=== PATIENT | female | born 1950 | race Two or more races ===

== ENCOUNTER 2019-07-02 12:18 | Inpatient (IN) | payer MEDICARE, OTHER ==
[~2019-07-02] VITALS: Ht 170.2 cm; Wt 59.4 kg
[2019-07-02] MEDS ORDERED: ACETAMINOPHEN 325 MG TABLET ONE ×2 (12:55→17:34)
[2019-07-02] MEDS ORDERED: ONDANSETRON HCL/PF 4 MG/2 ML VIAL ONE (12:55)
[2019-07-02 12:56] LABS: BASOPHILS % (AUTO) 0.5 % (0.0-2.0); EOSINOPHILS % (AUTO) 2.9 % (0.0-6.0); HEMATOCRIT 29 % (33-45); HEMOGLOBIN 9.5 g/dL (11.5-14.8); LYMPHOCYTES # (AUTO) 0.7 /CMM (0.8-4.8); LYMPHOCYTES % (AUTO) 9.2 % (20.0-44.0); MEAN CORPUSCULAR HGB CONC 33 g/dl (31.0-36.0); MEAN CORPUSCULAR VOLUME 93 fL (82-100); MONOCYTES # (AUTO) 0.5 /CMM (0.1-1.30); MONOCYTES % (AUTO) 5.9 % (2.0-12.0); NEUTROPHILS # (AUTO) 6.3 /CMM (1.8-8.9); NEUTROPHILS % (AUTO) 81.5 % (43.0-81.0); PLATELET COUNT (AUTO) 455 /CMM (150-450); RED BLOOD CELL COUNT(AUTO) 3.12 MIL/uL (4.0-5.2); WHITE BLOOD COUNT (AUTO) 7.8 K/uL (4.3-11.0)
[2019-07-02] MEDS ORDERED: IV NS 0.9% 500 ML BAG IV ONE (13:00)
[2019-07-02] MEDS ORDERED: ONDANSETRON HCL/PF 4 MG/2 ML VIAL IVP ONE (13:00)
[2019-07-02] MEDS ORDERED: ACETAMINOPHEN 325 MG TABLET PO ONE ×2 (13:00→17:30)
--- NOTE | 2019-07-02 13:00 | NUR ---
patient BIBRA, c/o nausea s/p syncopal episode from home, on room air, breathing evenly and unlabored. connected to the monitor and pulse ox. kept comfortable, will continue to monitor accordingly. E
[2019-07-02 13:06] LABS: CALCIUM, SERUM 8.8 mg/dL (8.5-10.1); CARBON DIOXIDE 28 mmol/L (21-32); CHLORIDE 101 mmol/L (98-107); CREATININE 1.1 mg/dL (0.6-1.3); GLUCOSE 109 mg/dL (74-106); POTASSIUM 4.4 mmol/L (3.5-5.1); SODIUM SERUM 137 mmol/L (136-145); UREA NITROGEN, BLOOD 11 mg/dL (7-18)
[2019-07-02 13:13] LABS: ALANINE AMINOTRANSFERASE 16 U/L (12-78); ALBUMIN 2.7 g/dL (3.4-5.0); ALKALINE PHOSPHATASE 152 U/L (46-116); ASPARTATE AMINOTRANSFERASE 31 U/L (15-37); BILIRUBIN,DIRECT 0.1 mg/dL (0.0-0.2); BILIRUBIN,TOTAL 0.5 mg/dL (0.2-1.0); TOTAL PROTEIN, SERUM 6.2 g/dL (6.4-8.2)
[2019-07-02 14:26] LABS: APPEARANCE,URINE Clear (CLEAR); BILIRUBIN,URINE Negative (NEGATIVE); BLOOD, URINE Negative Ery/uL (NEGATIVE); COLOR,URINE Yellow (YELLOW); KETONES,URINE Negative (NEGATIVE); LEUKOCYTE ESTERASE ,URINE Small (NEGATIVE); NITRITE, URINE Negative (NEGATIVE); PROTEIN,URINE Negative (NEGATIVE); UGLUCOSE Negative (NEGATIVE); UROBILINOGEN,URINE 0.2 EU/dL (0.2)
[2019-07-02 14:33] LABS: BACTERIA,URINE Few /HPF (None Seen); RBC,URINE 0-2 /HPF (0-2); SQUAMOUS EPITHELIAL CELL,UR Few /HPF (None Seen)
--- NOTE | 2019-07-02 14:45 | NUR ---
ALL RESULTS BACK, BENSON LISA INFORMED THAT CAREGIVER AT BEDSIDE WANTS AN UPDATE
[2019-07-02] MEDS ORDERED: ATOR40TA PO (15:47)
[2019-07-02] MEDS ORDERED: OMEP20TA5 PO (15:47)
[2019-07-02] MEDS ORDERED: LAMO100T17 PO (15:47)
[2019-07-02] MEDS ORDERED: LATA2.5D7 OP (15:47)
[2019-07-02] MEDS ORDERED: BRIM5DRO3 EACHEYE (15:47)
[2019-07-02] MEDS ORDERED: ASPI-605 PO (15:47)
[2019-07-02] MEDS ORDERED: CARB-93 PO (15:47)
[2019-07-02] MEDS ORDERED: GABA-534 PO (15:47)
[2019-07-02] MEDS ORDERED: MULT-439 PO (15:47)
[2019-07-02] MEDS ORDERED: LOSA25TA27 PO (15:47)
[2019-07-02] MEDS ORDERED: CRAN400T3 PO (15:47)
[2019-07-02] MEDS ORDERED: DULO60CA45 PO (15:47)
[2019-07-02] MEDS ORDERED: [UNRECOGNIZED DRUG - CODE] PO (15:47)
[2019-07-02] MEDS ORDERED: MELA3TAB41 PO (15:47)
[2019-07-02] MEDS ORDERED: IBAN150T16 PO (15:47)
[2019-07-02] MEDS ORDERED: CHOL200076 PO (15:47)
--- NOTE | 2019-07-02 15:50 | NUR ---
wheeled patient ia lexii to ct
[2019-07-02] MEDS ORDERED: CEFTRIAXONE 1GM BAG (ER ONLY) 1 GM/50 ML PIGGYBACK IV ONE (16:00)
[2019-07-02] MEDS ORDERED: CEFTRIAXONE 1GM BAG (ER ONLY) 50 ML IV ONE (16:12)
--- NOTE | 2019-07-02 16:34 | NUR ---
CALLED [facility], PAGED CARRILLO MATHEW
--- NOTE | 2019-07-02 16:41 | NUR ---
jass [facility] authorization number to admit [id number]
--- NOTE | 2019-07-02 16:43 | NUR ---
rasta gave auth to admit patient. Addendum: 07/02/19 at 1650 by MICHELE toby gave auth to admit patient
--- NOTE | 2019-07-02 18:41 | NUR ---
report given to Marlys MENG for bria.
--- NOTE | 2019-07-02 19:03 | NUR ---
wheeled patient via gurney accompanied by RN and emt in no distress. Vega RN at bedside to assume care.
--- NOTE | 2019-07-02 19:18 | NUR ---
RN NOTES Received Patient via gurney. Ambulatory with assist and walker. A/O x 3 with episodes of forgetfulness. Patient in stable condition. Breathing even and unlabored on room air with no respiratory distress. Denies pain. No signs and symptoms of pain. 18g PIV on LAC clean, intact, patent and flushing well. Safety precautions in place. Bed locked and set to lowest position with side rails x 2 up. All needs rendered at this time. Call light within reach. Will endorse to complete admission and plan of care to oncoming shift.
--- NOTE | 2019-07-02 19:30 | NUR ---
TELE ADMISSION NOTES RECEIVED PATIENT AWAKE IN BED. FAMILY PRESENT AT THE BEDSIDE. A/OX3. ON ROOM AIR. NO S/S OF ACUTE RESPIRATORY DISTRESS AND NO COMPLAINTS OF PAIN AT THIS TIME. TELE MONITOR READING SINUS RHYTHM, HEART RATE 92. IV PRESENT ON LEFT AC, SIZE 20, INTACT & PATENT, HEP LOCKED. BELONGINGS LIST PLACED IN CHART. MED RECONCILIATION COMPLETED. SAFETY MEASURES IN PLACE. BED LOCKED, ALARM ON, SIDE RAILS X2, CALL LIGHT WITHIN REACH. WILL CONTINUE TO MONITOR.
[2019-07-02] MEDS ORDERED: IV NS 0.9% 1,000 ML IV PRN (19:43)
[2019-07-02 20:00] VITALS: BP 121/79
[2019-07-02] MEDS ORDERED: ACETAMINOPHEN 325 MG TABLET PO PRN (20:00)
[2019-07-02] MEDS ORDERED: ONDANSETRON HCL/PF 4 MG/2 ML VIAL IVP PRN (20:00)
[2019-07-02] MEDS ORDERED: Z GUARD REMEDY 2 OZ OINT TP PRN (20:00)
[2019-07-02 20:54] VITALS: BP 121/79
[2019-07-02] MEDS: CARBIDOPA/LEVODOPA 25/100 MG 1 UDTAB PO SCH (21:59)
[2019-07-02] MEDS: CEPHALEXIN MONOHYDRATE 250 MG CAPSULE PO SCH (21:59)
[2019-07-02] MEDS: ENOXAPARIN SODIUM 40 MG/0.4 ML DISP.SYRIN SQ SCH (22:00)
[2019-07-02] MEDS: LIDOCAINE 5% (PATCH) 1 EA PATCH TP SCH (22:00)
[2019-07-02] MEDS: LATANOPROST EYE DROP 0.005% 2.5 ML BOTTLE OP SCH (22:00)
[2019-07-02] MEDS ORDERED: DULOXETINE HCL 30 MG CAPSULE.DR PO SCH (22:00)
[2019-07-03] VITALS (8 sets, daily range): BP systolic 134–150; BP diastolic 80–98
[2019-07-03] MEDS: CEPHALEXIN MONOHYDRATE 250 MG CAPSULE PO SCH ×3 (05:06→21:09)
[2019-07-03 06:38] LABS: BASOPHILS % (AUTO) 0.4 % (0.0-2.0); EOSINOPHILS % (AUTO) 3.6 % (0.0-6.0); HEMATOCRIT 28 % (33-45); HEMOGLOBIN 9.2 g/dL (11.5-14.8); LYMPHOCYTES % (AUTO) 13.4 % (20.0-44.0); MEAN CORPUSCULAR HGB CONC 33 g/dl (31.0-36.0); MEAN CORPUSCULAR VOLUME 92 fL (82-100); MONOCYTES # (AUTO) 0.6 /CMM (0.1-1.30); MONOCYTES % (AUTO) 7.9 % (2.0-12.0); NEUTROPHILS # (AUTO) 5.7 /CMM (1.8-8.9); NEUTROPHILS % (AUTO) 74.7 % (43.0-81.0); PLATELET COUNT (AUTO) 418 /CMM (150-450); RED BLOOD CELL COUNT(AUTO) 3.05 MIL/uL (4.0-5.2); WHITE BLOOD COUNT (AUTO) 7.6 K/uL (4.3-11.0)
--- NOTE | 2019-07-03 06:53 | NUR ---
GAS CONTROLLER CLOSING NOTES PATIENT AWAKE IN BED. A/OX3. ON ROOM AIR. NO COMPLAINTS OF SOB OR PAIN AT THIS TIME. TELE MONITOR READING SINUS RHYTHM, HEART RATE 89. IV ON LEFT AC, SIZE 20, INTACT & PATENT, NS RUNNING AT 75 ML/HR. BED LOCKED, ALARM ON, SIDE RAILS X2, CALL LIGHT WITHIN REACH. WILL ENDORSE TO DAY SHIFT NURSE TO FOLLOW PLAN OF CARE.
[2019-07-03 06:54] LABS: BILIRUBIN,TOTAL 0.3 mg/dL (0.2-1.0); CALCIUM, SERUM 8.2 mg/dL (8.5-10.1); CREATININE 0.9 mg/dL (0.6-1.3); PHOSPHORUS 3.6 mg/dL (2.5-4.9); POTASSIUM 3.6 mmol/L (3.5-5.1)
[2019-07-03 06:55] LABS: ALBUMIN 2.5 g/dL (3.4-5.0); MAGNESIUM 1.9 mg/dL (1.8-2.4); TOTAL PROTEIN, SERUM 5.7 g/dL (6.4-8.2)
[2019-07-03 07:06] LABS: THYROID STIMULATING HORMONE 1.351 uIU/mL (0.358-3.74)
--- NOTE | 2019-07-03 08:50 | NUR ---
Patient accidentally pulled out IV line
[2019-07-03] MEDS ORDERED: LOSARTAN POTASSIUM 25 MG TABLET PO SCH (09:00)
[2019-07-03] MEDS ORDERED: LamoTRIgine 100 MG TABLET PO SCH (09:00)
[2019-07-03] MEDS ORDERED: GABAPENTIN 300 MG CAPSULE PO SCH (09:00)
--- NOTE | 2019-07-03 09:10 | NUR ---
A new IV line to the right arm G 22, flushing well.
[2019-07-03] MEDS: ASPIRIN EC 81 MG TABLET.DR PO SCH (09:48)
[2019-07-03] MEDS: BRIMONIDINE TARTRATE OPHT SOLN 5 ML BOTTLE EACHEYE SCH ×2 (09:48→18:01)
[2019-07-03] MEDS: CARBIDOPA/LEVODOPA 25/100 MG 1 UDTAB PO SCH (09:49)
[2019-07-03] MEDS ORDERED: SOD FERRIC GLUC 125 MG in IV NS 0.9% 100 ML IV SCH (14:00)
--- NOTE | 2019-07-03 16:50 | NUR ---
Made aware Stacy. Ricki PRATT that patient's daughter wants to discus medications pt on
--- NOTE | 2019-07-03 17:00 | NUR ---
Dr. Reyes will call pt daughter later today
--- NOTE | 2019-07-03 18:42 | NUR ---
Patient resting in bed with caregiver at bedside.Breathing even and unlabored on room air , with no distress noted. IV fluid running as ordered. All needs attended. Pt will d/c in am. Safety precautions implemented and call light within reach. Will endorse to next shift for RAMIREZ
--- NOTE | 2019-07-03 19:51 | NUR ---
DENTAL BILLING SPECIALIST NOTES PATIENT IN BED, AWAKE, ALERT AND ORIENTED X 3. BREATHING EVEN AND UNLABORED ON ROOM AIR. SHOWS NO SIGNS OF ACUTE RESPIRATORY DISTRESS, NO ACUTE PAIN. IV ON R WRIST 22G RUNNING NS AT 75ML/HR. SHOWS NO SIGN OF INFILTRATION, NO REDNESS. TELE MONITOR SINUS TACHY AT 100HR. SAFETY PRECAUTIONS IN PLACE. BED IN LOWEST POSITION, LOCKED, AND CALL LIGHT KEPT WITHIN REACH. WILL CONTINUE TO MONITOR.
[2019-07-03] MEDS: LATANOPROST EYE DROP 0.005% 2.5 ML BOTTLE OP SCH (21:10)
[2019-07-03] MEDS: LIDOCAINE 5% (PATCH) 1 EA PATCH TP SCH (21:10)
[2019-07-03] MEDS: ENOXAPARIN SODIUM 40 MG/0.4 ML DISP.SYRIN SQ SCH (21:12)
[2019-07-03] MEDS ORDERED: ATORVASTATIN 40 MG TABLET PO SCH (22:00)
[2019-07-03 23:34] LABS: OCCULT BLOOD STOOL POSITIVE (NEGATIVE)
[2019-07-04 00:01] VITALS: BP 139/92
[2019-07-04] MEDS: CEPHALEXIN MONOHYDRATE 250 MG CAPSULE PO SCH (04:42)
--- NOTE | 2019-07-04 06:41 | NUR ---
SKIING INSTRUCTOR NOTES PATIENT IN BED, ASLEEP, ALERT AND ORIENTED X2-3, PERIODS OF FORGETFULNESS. BREATHING EVEN AND UNLABORED ON ROOM AIR. SHOWS NO SIGNS OF ACUTE RESPIRATORY DISTRESS, NO ACUTE PAIN. IV ON R WRIST 22G RUNNING NS AT 75ML/HR. CLEAN, DRY AND INTACT. SHOWS NO SIGN OF INFILTRATION, NO REDNESS. TELE MONITOR SINUS TACHY AT 120HR. PT REFUSED 0400 VITAL SIGNS. ALL DUE MEDICATIONS GIVEN, SAFETY PRECAUTIONS IN PLACE. BED IN LOWEST POSITION, LOCKED, AND CALL LIGHT KEPT WITHIN REACH. WILL ENDORSE TO ONCOMING NURSE.
[2019-07-04 08:00] VITALS: BP 132/67
--- NOTE | 2019-07-04 08:00 | NUR ---
MS RN NOTES PATIENT IN BED RESTING NO SOB OR ACUTE DISTRESS NOTED. PATIENT ALERT, ORIENTED X3. PERIPHERAL IV INTACT PATENT. BED IN LOW LOCKED POSITION, CALL LIGHT WITHIN REACH. WILL CONTINUE TO MONITOR.
[2019-07-04] MEDS: BRIMONIDINE TARTRATE OPHT SOLN 5 ML BOTTLE EACHEYE SCH (08:35)
[2019-07-04] MEDS: ASPIRIN EC 81 MG TABLET.DR PO SCH (08:35)
[2019-07-04] MEDS ORDERED: DULO60CA45 PO (10:01)
[2019-07-04] MEDS ORDERED: GABA-534 PO (10:01)
[2019-07-04] MEDS ORDERED: CEPH-569 PO (10:01)
[2019-07-04] MEDS ORDERED: LAMO100T17 PO (10:01)
[2019-07-04] MEDS ORDERED: CARB-93 PO (10:01)
[2019-07-04] MEDS ORDERED: MEGE400O4 PO (10:01)
--- NOTE | 2019-07-04 13:10 | NUR ---
MS RN NOTES PATIENT DISCHARGED HOME WITH CAREGIVER. PATIENT ALERT, ORIENTED X3. DISCHARGE TEACHING PROVIDED TO PATIENT AND CAREGIVER. VERBALIZED UNDERSTANDING. [facility] CALLED CONFIRMED MEDICATIONS ARE READY FOR PICKUP. ALL BELONGINGS ACCOUNTED FOR, BELONGING LIST SIGNED. PERIPHERAL IV REMOVED WITH MINIMAL BLEEDING. MD AWARE OF ALL ABNORMAL LABS AND TESTS. PATIENT ESCORTED TO CAR BY FORENSIC TECHNICIAN WITH CAREGIVER.
== END 2019-07-04 13:17 | disposition home or self-care (01) | DRG 74 ==
LOC: ER 12:20 → TELE 19:23 → MED 07-04 08:55
PROVIDERS: ADMIT Nurse Practitioner Acute Care; ATTEND Nurse Practitioner Acute Care
DX: G90.8 Other disorders of autonomic nervous system (principal); M48.56XA Collapsed vertebra, not elsewhere classified, lumbar region, initial encounter for fracture; N39.0 Urinary tract infection, site not specified; J98.11 Atelectasis; I69.351 Hemiplegia and hemiparesis following cerebral infarction affecting right dominant side; R64 Cachexia; I10 Essential (primary) hypertension; G62.9 Polyneuropathy, unspecified; E78.5 Hyperlipidemia, unspecified; H40.9 Unspecified glaucoma; D50.9 Iron deficiency anemia, unspecified; Z87.891 Personal history of nicotine dependence; Z87.440 Personal history of urinary (tract) infections; Z96.642 Presence of left artificial hip joint; Z85.118 Personal history of other malignant neoplasm of bronchus and lung; Z82.49 Family history of ischemic heart disease and other diseases of the circulatory system; Z79.82 Long term (current) use of aspirin; Z79.899 Other long term (current) drug therapy; M41.9 Scoliosis, unspecified; G20 Parkinson's disease; R29.810 Facial weakness; W18.30XA Fall on same level, unspecified, initial encounter; Y92.009 Unspecified place in unspecified non-institutional (private) residence as the place of occurrence of the external cause
CPT/HCPCS: 36415; 70450-TC; 71045-TC; 72110-TC; 80048-TC; 80053-TC; 80061-TC; 80076-TC; 81000-TC; 82272-TC; 83540-TC; 83735-TC; 84100-TC; 84443-TC; 84484-TC; 85025-TC; 85730-TC; 87081-TC; 87086-TC; 93307-TC; 97116-TC; 97530-TC; G0378; J0696; J1650; J2405; J2916; J7030; J7040

== ENCOUNTER 2019-12-18 12:08 | Inpatient (IN) | payer MEDICARE, OTHER ==
[~2019-12-18] VITALS: Ht 167.6 cm; Wt 70.4 kg
[~2019-12-18 12:08] MED LIST: ASPI-605 PO; ATOR40TA PO; BRIM5DRO3 EACHEYE; CARB-93 PO; CEPH-569 PO; CHOL200076 PO; CRAN400T3 PO; DULO60CA45 PO; GABA-534 PO; IBAN150T16 PO; LAMO100T17 PO; LATA2.5D7 EACHEYE; LOSA25TA27 PO; MEGE400O4 PO; MELA3TAB41 PO; MULT-439 PO; OMEP20TA5 PO; [UNRECOGNIZED DRUG - CODE] PO
--- NOTE | 2019-12-18 12:13 | NUR ---
Ron rodríguez in [facility] - 12/18/19 [address] AVILA AT BEDSIDE
--- NOTE | 2019-12-18 12:18 | NUR ---
BIBRA FROM HOME C/O R HIP PAIN 4/10 PS AND FOREHEAD BRUISING S/P GLF. TO ER BED 9, HOOKED TO MONITOR, CHANGED TO HOSP GOWN, WARM BLANKET PROVIDED, PATIENT AAO x 3, BREATHING EVEN AND UNLABORED.
--- NOTE | 2019-12-18 13:18 | NUR ---
DR AVILA AT BEDSIDE
--- NOTE | 2019-12-18 13:42 | NUR ---
MOVE SHEET SUBMITTED AND CALLED FOR MS BED.
[2019-12-18 13:51] LABS: BASOPHILS % (AUTO) 0.4 % (0.0-2.0); EOSINOPHILS % (AUTO) 1.2 % (0.0-6.0); HEMATOCRIT 40 % (33-45); HEMOGLOBIN 12.6 g/dL (11.5-14.8); LYMPHOCYTES % (AUTO) 8.7 % (20.0-44.0); MEAN CORPUSCULAR HGB CONC 32 g/dl (31.0-36.0); MEAN CORPUSCULAR VOLUME 93 fL (82-100); MONOCYTES # (AUTO) 0.9 /CMM (0.1-1.30); MONOCYTES % (AUTO) 7.5 % (2.0-12.0); NEUTROPHILS # (AUTO) 9.6 /CMM (1.8-8.9); NEUTROPHILS % (AUTO) 82.2 % (43.0-81.0); PLATELET COUNT (AUTO) 348 /CMM (150-450); RED BLOOD CELL COUNT(AUTO) 4.24 MIL/uL (4.0-5.2); WHITE BLOOD COUNT (AUTO) 11.7 K/uL (4.3-11.0)
--- NOTE | 2019-12-18 13:53 | NUR ---
CALLED [facility]
[2019-12-18 13:59] LABS: CALCIUM, SERUM 8.9 mg/dL (8.5-10.1); CREATININE 0.9 mg/dL (0.6-1.3); POTASSIUM 4.4 mmol/L (3.5-5.1)
[2019-12-18] MEDS ORDERED: CRAN425C6 PO (14:12)
[2019-12-18] MEDS ORDERED: DULO60CA64 PO (14:12)
[2019-12-18] MEDS ORDERED: LAMO100T17 PO (14:12)
[2019-12-18] MEDS ORDERED: CARB1TAB21 PO (14:12)
[2019-12-18] MEDS ORDERED: GABA-532 PO (14:12)
[2019-12-18] MEDS ORDERED: UBID100C13 PO (14:13)
[2019-12-18] MEDS ORDERED: MIRT7.5T10 PO (14:13)
--- NOTE | 2019-12-18 15:17 | NUR ---
LAB CALLED COVID (-) NEG.
[2019-12-18] MEDS ORDERED: ONDANSETRON HCL/PF 4 MG/2 ML VIAL IVP PRN (15:30)
[2019-12-18] MEDS ORDERED: Z GUARD REMEDY 2 OZ OINT TP PRN (15:30)
[2019-12-18] MEDS ORDERED: MAG HYDROX/AL HYDROX/SIMETH 30 ML UDC PO PRN (15:30)
[2019-12-18] MEDS ORDERED: MAGNESIUM HYDROXIDE 30 ML UDC PO PRN (15:30)
[2019-12-18] MEDS ORDERED: ACETAMINOPHEN 325 MG TABLET PO PRN (15:30)
--- NOTE | 2019-12-18 15:46 | NUR ---
JULIA TRIVEDI IS DAUGHTER [phone] AND MEDICAL POA PLEASE CONSULT WITH HER REGARDING ANY ISSUES. PLEASE HAVE [facility] CALL HER.
--- NOTE | 2019-12-18 15:50 | NUR ---
REPORT GIVEN TO DAYA MENG OF MS UNIT
--- NOTE | 2019-12-18 15:51 | NUR ---
PATIENT GOING TO ROOM 311
--- NOTE | 2019-12-18 16:50 | NUR ---
MS NUTRITIONAL CHEMIST NOTES ADMITTED FROM EMERGENCY DEPARTMENT REPORT GIVEN BY JEC RN. PATIENT ALERT ORIENTED X 3. NO ACUTE DISTRESS NOTED. BREATHING UNLABORED. NO SOB NOTED. NO FACIAL GRIMACING NOTED. IV ACCESS PATENT AND INTACT, NO REDNESS. NO SWELLING NOTED. ORIENTED TO THE ROOM. SHOW HOW TO USE CALL LIGHT, VERBALIZED UNDERSTANDING, PLACED WITHIN REACH. SAFETY MEASURES IN PLACE. WILL CONTINUE TO MONITOR ACCORDINGLY.
--- NOTE | 2019-12-18 17:30 | NUR ---
MS RN NOTES CLARIFIED ADMISSION ORDER CHEMICAL DVT PROPHYLAXIS WITH DOCTOR WHITE , NO NEW ORDER PATIENT FOR SURGERY TOMORROW.
[2019-12-18] MEDS: GABAPENTIN 300 MG CAPSULE PO SCH (17:49)
[2019-12-18] MEDS: CARBIDOPA/LEVODOPA 25/100 MG 1 UDTAB PO SCH ×2 (17:50→21:43)
--- NOTE | 2019-12-18 17:50 | NUR ---
MS RN NOTES PATIENT COMPLAINT OF 3/10 RIGHT HIP PAIN, ASKED FOR TYLENOL, TYLENOL WAS GIVEN ORDERED FOR PAIN.
--- NOTE | 2019-12-18 18:00 | NUR ---
MS RN NOTES PATIENT COMFORTABLE IN BED, EATING DINNER. NEEDS ATTENDED .WILL CONTINUE TO MONITOR PATIENT.
--- NOTE | 2019-12-18 18:31 | NUR ---
MS RN NOTES CALLED DR DWIGHT TRENT REGARDING ORDERS, PATIENT FOR SURGERY TOMORROW. NO NEW ORDERS MADE , DR TRENT SAID TO CALL HOSPITALIST.
--- NOTE | 2019-12-18 18:40 | NUR ---
MS RN NOTES PATIENT COMFORTABLE IN BED ALERT ORIENTED X 3. NO ACUTE DISTRESS NOTED. BREATHING UNLABORED. NO SOB NOTED. NO FACIAL GRIMACING NOTED. IV ACCESS PATENT AND INTACT, NO REDNESS. NO SWELLING NOTED. ABLE TO MAKE NEEDS KNOWN , NEEDS ATTENDED AND ANTICIPATED. PATIENT HANDLED GENTLE, CAREFULLY WITH CAUTION DURING CARE. SAFETY MEASURES IN PLACE. CALL LIGHT WITHIN REACH. WILL ENDORSE TO NIGHT NURSE FOR CONTINUITY OF CARE.
--- NOTE | 2019-12-18 18:55 | NUR ---
MS RN NOTES SPOKE WITH DR WHITE RECEIVED NEW ORDERS NPO AFTER MIDNIGHT.
--- NOTE | 2019-12-18 19:15 | NUR ---
MS RN NOTES DAUGHTER PANTERA CLIFTON CALLED YELLING, TALKING IN HIGH PITCHED TONE, ASKING TO SPEAK WITH THE DOCTOR AND WANT TO MAKE SURE THAT HER MOTHER NEEDS ARE BEING ATTENDED. EXPLAINED TO THE DAUGHTER THAT SINCE PATIENT ARRIVED ON THE FLOOR PATIENT USES CALL LIGHT FOR ASSISTANCE , ALL NEEDS ARE BEING ATTENDED AND MET AND KEPT COMFORTABLE, ASSESS FOR PAIN AND PAIN MEDICATION GIVEN. CHECKED PATIENT, PATIENT COMFORTABLE. WILL ENDORSE TO NIGHT NURSE FOR FOLLOW UP.
--- NOTE | 2019-12-18 19:20 | NUR ---
MS/RN NOTES RECEIVED PATIENT IN BED RESTING. PATIENT IS ALERT AND ORIENTED X 3 AND ABLE TO MAKE NEEDS KNOWN TO STAFF MEMBERS. PATIENT IS ON ROOM AIR TOLERATING WELL. NO SINGS IF SOB OR RESPIRATORY DISTRESS NOTED. PATIENTS BREATHING IS EVEN AND UNLABORED. PATIENTS IV ACCESS ON LEFT AC #18 G IS INTACT AND FLUSHING WELL. PAIN IS STATING RIGHT HIP PAIN. SAFETY MEASURES ARE IN PLACE, BED IS DANIEL AND PLACED IN THE LOWEST POSITION, SIDE RAILS UP X 2. CALL LIGHT IS WITHIN REACH. WILL CONTINUE TO MONITOR. PATIENT DAUGHTER CALLED. DAUGHTER JULIA CLIFTON IS DEMANDING TO SPEAK WITH THE WOOD POLE TREATER DOCTOR. SHE YELLING OVER THE PHONE AND IS AND BEING VERY IMPROPER MANNER TOWARDS STAFF. SHE STATES THAT HER MOTHER IS UNABLE TO MAKE DECISIONS FOR HERSELF. SHE MENTIONS THAT HER MOTHERS NEEDS ARE NOT BEING MET. I TRIED TO REASSURE HER OF HER MOTHERS CARE BUT SHE WAS BEING IMPERTINENT AT THIS TIME.
[2019-12-18] MEDS: MORPHINE SULFATE INJ 2 MG/ML DISP.SYRIN IV PRN (19:53)
--- NOTE | 2019-12-18 19:55 | NUR ---
MS/RN NOTES PATIENT STATED PAIN 10/10 ON RIGHT HIP. MORPHINE 2 MG IV WAS GIVEN. WILL CONTINUE TO MONITOR.
[2019-12-18 20:00] VITALS: BP 153/96
--- NOTE | 2019-12-18 20:00 | NUR ---
MS/RN NOTES PROFESSIONAL SERVICES SPECIALIST BETSY SALAZAR NOTIFIED ABOUT PATIENTS DAUGHTER WANTING TO SPEAK WITH EQUIPMENT MAINTENANCE TECH DOCTOR. PATIENT CANNOT MOVE RIGHT HIP/LEG DUE TO Fx, AND ASKED FOR ORDER OF EDOUARD CATH.
--- NOTE | 2019-12-18 20:15 | NUR ---
MS/RN NOTES HAILEY SALAZAR NOTIFIED THAT HE WAS ABLE TO SPEAK WITH DAUGHTER. HAILEY MEYER ALSO ORDERED FOR EDOUARD CATH TO BE INSERTED.
[2019-12-18] MEDS: MIRTAZAPINE 15 MG TABLET PO SCH (21:42)
[2019-12-18] MEDS: LATANOPROST EYE DROP 0.005% 2.5 ML BOTTLE EACHEYE SCH (21:58)
--- NOTE | 2019-12-18 22:00 | NUR ---
MS/RN NOTES PATIENT EYE DROP MEDICATION XALATAN NOT AVAILABLE ON UNIT. NOT IN PATIENT CASSETTE.
--- NOTE | 2019-12-18 22:30 | NUR ---
MS/RN NOTES EDOUARD CATH HAS BEING INSERTED WITH SECOND ATTEMPT AND SECOND NURSE HELP. PATIENT IS IN NO DISTRESS. WILL CONTINUE TO MONITOR.
[2019-12-18] MEDS: IV LR 1000 ML 1,000 ML IV PRN (22:56)
[2019-12-19] VITALS (9 sets, daily range): BP systolic 117–161; BP diastolic 64–92
[2019-12-19] MEDS: MORPHINE SULFATE INJ 2 MG/ML DISP.SYRIN IV PRN ×4 (01:35→16:35)
[2019-12-19] MEDS ORDERED: CEFAZOLIN 2 GM in IV D5W 100 ML IV SCH (02:00)
[2019-12-19 06:37] LABS: BASOPHILS % (AUTO) 0.5 % (0.0-2.0); EOSINOPHILS % (AUTO) 4.2 % (0.0-6.0); HEMATOCRIT 46 % (33-45); HEMOGLOBIN 13.9 g/dL (11.5-14.8); LYMPHOCYTES % (AUTO) 11.5 % (20.0-44.0); MEAN CORPUSCULAR HGB CONC 30 g/dl (31.0-36.0); MEAN CORPUSCULAR VOLUME 100 fL (82-100); MONOCYTES # (AUTO) 0.7 /CMM (0.1-1.30); MONOCYTES % (AUTO) 8.3 % (2.0-12.0); NEUTROPHILS # (AUTO) 6.4 /CMM (1.8-8.9); NEUTROPHILS % (AUTO) 75.5 % (43.0-81.0); PLATELET COUNT (AUTO) 311 /CMM (150-450); WHITE BLOOD COUNT (AUTO) 8.5 K/uL (4.3-11.0)
--- NOTE | 2019-12-19 06:50 | NUR ---
MS/RN CLOSING NOTES PATIENT IN BED SLEEPING. PATIENT IS ALERT AND ORIENTED X 3 AND ABLE TO MAKE NEEDS KNOWN TO STAFF MEMBERS. PATIENT IS ON ROOM AIR TOLERATING WELL. NO SINGS OF SOB OR RESPIRATORY DISTRESS NOTED. PATIENTS BREATHING IS EVEN AND UNLABORED. PATIENTS IV ACCESS ON LEFT AC #18 G IS INTACT AND FLUSHING WELL. ALL PATIENTS NEEDS HAVE BEEN MET DURING SHIFT. SAFETY MEASURES ARE IN PLACE, BED IS DANIEL AND PLACED IN THE LOWEST POSITION, SIDE RAILS UP X 2. CALL LIGHT IS WITHIN REACH. WILL ENDORSE CARE TO DAY SHIFT.
--- NOTE | 2019-12-19 07:30 | NUR ---
RN OPENING NOTES RECEIVED PATIENT IN BED SLEEPING. BUT EASILY AROUSABLE. PATIENT IS ALERT AND ORIENTED X 3 AND ABLE TO MAKE NEEDS KNOWN . NO CARDIAC OR RESPIRATORY DISTRESS NOTED. NO SOB NOTED. PATIENT IS ON ROOM AIR SATURATING WELL. PATIENTS BREATHING IS EVEN AND UNLABORED. PATIENTS IV ACCESS ON LEFT AC #18 G IS INTACT AND FLUSHING WELL. WITH LR RUNNING AT 50ML/HR. EDOUARD CATH IS PRESENT BUT NOT DRAINING. PER BUCKLE SEWER NURSE, PT CATHETER WAS NOT DRAINING SINCE IT WAS PLACED. WILL ATTEMPT TO RE-INSERT. PT IS AWAKE THAT SHE IS TO BE KEPT NPO FOR PENDIING SURGERY OF R HIP. SAFETY MEASURES ARE IN PLACE, BED IS LOCKED AND PLACED IN THE LOWEST POSITION, SIDE RAILS UP X 2. CALL LIGHT IS WITHIN REACH. WILL ENDORSE CARE TO DAY SHIFT.
[2019-12-19 08:06] LABS: CALCIUM, SERUM 9.2 mg/dL (8.5-10.1); MAGNESIUM 2.6 mg/dL (1.8-2.4); POTASSIUM 3.9 mmol/L (3.5-5.1)
[2019-12-19] MEDS: GABAPENTIN 300 MG CAPSULE PO SCH ×3 (08:13→17:00)
[2019-12-19] MEDS: LamoTRIgine 100 MG TABLET PO SCH (08:13)
[2019-12-19] MEDS: CARBIDOPA/LEVODOPA 25/100 MG 1 UDTAB PO SCH ×4 (08:13→21:00)
[2019-12-19] MEDS: ATORVASTATIN 40 MG TABLET PO SCH (08:13)
[2019-12-19] MEDS: DULOXETINE HCL 30 MG CAPSULE.DR PO SCH (08:13)
[2019-12-19] MEDS: MULTIVIT W/MINERALS 1 TAB TABLET PO SCH (08:13)
--- NOTE | 2019-12-19 09:00 | NUR ---
DR. TRENT/CONSENT ASKED DR. TRENT REGARDING ORDER FOR SURGERY CONSENT, PER , PT WILL BE HAVING A RIGHT HIP CANNULATED SCREWS WITH POSSIBLE HEMIARTHROPLASTY. ALSO INFORMED MD THAT THE DAUGHTER WOULD LIKE TO SPEAK TO HIM PRIOR TO HER GIVING CONSENT TO ANY SURGERY. PER HE WILL TALK TO HER. PROVIDED MD WITH THE DAUGHTERS NUMBER.
--- NOTE | 2019-12-19 09:04 | NUR ---
WOUND CARE CONSULT: RECEIVED REQUEST FOR WOUND CONSULT/SKIN ASSESSMENT FOR SIGNIFICANT DRY SKIN ON LOWER LEGS WITH SCAB TO LEFT LOWER LEG, PRESENT ON ADMISSION. RECOMMENDATIONS MADE FOR SKIN PROTECTION AND SKIN CARE. DISCUSSED WITH NURSING STAFF. LIMITED ASSESSMENT TODAY DUE TO PT UNABLE TO TURN ALL THE WAY OVER FOR SACRAL/BUTTOCKS ASSESSMENT. WILL SEE PRN. GRACIA IN AGREEMENT WITH PLAN OF CARE. Addendum: 12/19/19 at 0906 by MELBA BRANDON WNDNU Amended: Links added.
--- NOTE | 2019-12-19 09:30 | NUR ---
EDOUARD CATH INSERTION EDOUARD CATH INSERTED 20FR/10ML. TOLERATED WELL. URINE COLLECTED FOR UA. EDOUARD CATH DRAINING WITH CLEAR YELLOW URINE.
[2019-12-19] MEDS: MINERAL OIL/PETROLATUM,WHITE 120 GM JAR TP SCH (09:51)
[2019-12-19 11:37] LABS: THYROID STIMULATING HORMONE 1.358 uIU/mL (0.358-3.74)
[2019-12-19] MEDS: IV LR 1000 ML 1,000 ML IV PRN ×2 (13:16→23:49)
[2019-12-19 13:27] LABS: APPEARANCE,URINE CLEAR (CLEAR); BILIRUBIN,URINE NEGATIVE (NEGATIVE); BLOOD, URINE NEGATIVE Ery/uL (NEGATIVE); COLOR,URINE YELLOW (YELLOW); KETONES,URINE NEGATIVE (NEGATIVE); LEUKOCYTE ESTERASE ,URINE NEGATIVE (NEGATIVE); NITRITE, URINE NEGATIVE (NEGATIVE); PROTEIN,URINE NEGATIVE (NEGATIVE); UGLUCOSE NEGATIVE (NEGATIVE); UROBILINOGEN,URINE 0.2 EU/dL (0.2)
--- NOTE | 2019-12-19 14:30 | NUR ---
CONSENT ATTEMPTED TO OBTAIN CONSENT FROM PT REGARDING PROCEDURE FOR R HIP CANNULATED SCREWS WITH HEMIARTHROPLASTY SINCE SHE IS AOX3. HOWEVER, PT STATED, "PLEASE OBTAIN CONSENT FROM MY DAUGHTER JESSE. SHE MAKES DECISIONS FOR ME. IF SHE SAYS YES THEN I SAY YES." CALLED DAUGHTER JESSE. CONSENT GIVEN BY DAUGHTER VIA PHONE WELL FOR BLOOD TRANSFUSION. VERIFIED WITH GOLD MENG.
--- NOTE | 2019-12-19 17:00 | NUR ---
SURGERY PT LEFT FOR SURGERY
[2019-12-19] MEDS ORDERED: BACITRACIN 50000 UNITS/VIAL ONE (17:19)
[2019-12-19] MEDS ORDERED: BUPIVACAINE 0.5 % PF 150 MG/30 ML VIAL ONE (17:19)
[2019-12-19] MEDS ORDERED: HYDROMORPHONE INJ 2 MG/ML DISP.SYRIN ONE (17:43)
--- NOTE | 2019-12-19 19:25 | NUR ---
RN CLOSING NOTES PT STILL NOT BACK FROM SURGERY. REPORT GIVEN TO SILVERWARE WASHER RN.
[2019-12-19] MEDS ORDERED: ALBUTEROL FS 2.5 MG/3 ML VIAL.NEB ONE (20:19)
--- NOTE | 2019-12-19 20:45 | NUR ---
MS/RN OPENING NOTES: PATIENT ARRIVED TO THE UNIT A/OX0. AROUSABLE BUT SLEEPY. WANTS TO BE LEFT ALONE. PER PT "STOP TALKING, DON'T TOUCH ME". NO SOB . NO S/S OF DISTRESS NOTED. ON 2L OF OXYGEN VIA NC SATURATING AT 94%. Q15 VS WILL START NOW. IV LINE ON THE LEFT AC, AND LEFT HAND INTACT PATENT AND FLUSHING WELL. SAFETY MEASURES MAINTAINED. BED IS IN LOWEST POSITION, SIDE RAILS X3 IN UPRIGHT POSITION, FALL AND SAFETY PRECAUTIONS ENFORCED. BED ALARM ON. WILL CONTINUE TO MONITOR ACCORDINGLY.
--- NOTE | 2019-12-19 21:45 | NUR ---
MS/RN NOTES: PT STARTED GETTING AGITATED. STILL SLEEPY BUT WOULD GET AGGRESSIVE TOWARDS STAFF. PT PULLED OUT IV LINE ON THE LEFT AC. WRAPPED WITH GAUZE, PT ATTEMPTING TO PULL OUT EDOUARD CATH, AND REMOVING NASAL CANNULA.
[2019-12-19] MEDS: LATANOPROST EYE DROP 0.005% 2.5 ML BOTTLE EACHEYE SCH (22:00)
[2019-12-19] MEDS: MIRTAZAPINE 15 MG TABLET PO SCH (22:00)
--- NOTE | 2019-12-19 23:33 | NUR ---
MS/RN NOTES: PT'S FAMILY CALLED TWICE. NO ANSWER, LEFT A VOICE MESSAGE. PT STILL AGITATED AND TRYING TO PULL OUT IV LINES, EDOUARD CATH, OXYGEN NASAL CANNULA, AND PULSE OX. PT ALSO AGGRESSIVE AND TRYING TO HIT STAFF. FUEL OIL TRUCK DRIVER DOCTOR HAILEY MEYER MADE AWARE. OBTAIN ORDERS. CHARGE NURSE ALSO AWARE. WILL KEEP MONITORING PT ACCORDINGLY AND CONTINUE FREQUENT ASSESSMENTS.
[2019-12-20 00:30] VITALS: BP 141/82
[2019-12-20 01:30] VITALS: BP 129/79
--- NOTE | 2019-12-20 01:38 | NUR ---
MS/RN NOTES: PT. CALM, ALERT AND ORIENTED X3. NOT CONFUSED AND AGITATED BEFORE. PT. IS EDUCATED AND UNDERSTOOD THE RESTRAINT ORDER AND THE IMPORTANCE OF WHY IT WAS ORDERED. ACUTE MEDICAL RESTRAINT NO DC'D. SOFTBALL WINDER BETSY AWARE. CHARGE NURSE AWARE.
--- NOTE | 2019-12-20 01:40 | NUR ---
MS/RN NOTES: GRAY BARAHONA'Kristie. PT. UNDERSTANDS AND ABLE TO FOLLOW SAFETY PRECAUTIONS AND SAFETY INSTRUCTIONS.
--- NOTE | 2019-12-20 02:10 | NUR ---
MS/RN NOTES: ANCEF 2GM. UNABLE TO SCAN BECAUSE PHARMACY MADE A MISTAKE ON PUTTING THE WRONG DATE (12/19/19 INSTEAD OF 12/20/19). CHARGE NURSE AWARE. PER CHARGE NURSE, MANUALLY BARCODE THE ATBX. WILL ADMINISTER ORDERED.
[2019-12-20] MEDS: CEFAZOLIN 2 GM in IV D5W 100 ML IV SCH ×2 (02:13→09:46)
--- NOTE | 2019-12-20 03:00 | NUR ---
MS/RN NOTES: PATIENT'S DAUGHTER FINALLY CALLED BACK. UPDATED ON PT'S STATUS AND EXPLAINED THE NEED FOR RESTRAINT EARLIER WHEN PATIENT WAS AGITATED AND CONFUSED. PT'S FAMILY AWARE THAT RESTRAINTS WAS DC'D RIGHT WHEN PT IS MORE ORIENTED. PT'S FAMILY HAPPY WITH CARE PT IS RECEIVING. WILL CONTINUE MONITORING PT.
--- NOTE | 2019-12-20 04:00 | NUR ---
MS/RN NOTES: PT PULLED OUT IV LINE ON THE LEFT HAND. WRAPPED WITH GAUZE. STARTED A NEW IV LINE ON THE RIGHT FA #22G. INTACT PATENT AND FLUSHING WELL.
--- NOTE | 2019-12-20 06:50 | NUR ---
MS/RN CLOSING NOTES: PATIENT REMAINS A/O X3. VERBALLY RESPONSIVE. DENIES PAIN AT THIS TIME. TURNED AND REPOSITIONED MUCH PT ALLOWS. RESTING COMFORTABLY IN BED. REMAINS STABLE. NO COMPLAINS OF PAIN ALL THROUGHOUT THE SHIFT. IV LINE ON THE RIGHT FA, INTACT PATENT AND RUNNING LR @75MLS/HR. SAFETY MEASURES MAINTAINED. BED IS IN LOWEST POSITION, SIDE RAILS X3 IN UPRIGHT POSITION, FALL AND SAFETY PRECAUTIONS ENFORCED. BED ALARM ON. ALL NURSING NEEDS MET AND RENDERED. WILL ENDORSE TO DAY SHIFT FOR RAMIREZ.
[2019-12-20 07:09] LABS: HEMOGLOBIN 10.7 g/dL (11.5-14.8)
[2019-12-20] MEDS: HYDROCODONE/APAP 5/325MG 1 EACH TABLET PO PRN ×2 (07:59→15:50)
[2019-12-20 08:00] VITALS: BP 130/75
--- NOTE | 2019-12-20 08:00 | NUR ---
RN OPENING NOTES RECEIVED PATIENT IN BED AWAKE. PATIENT IS ALERT AND ORIENTED X 2 AT THIS TIME. SHE IS ABLE TO TELL ME THAT SHES IN [facility] BUT SHE WAS UNABLE TO TELL ME TODAYS DATE. SHE KEPT REUQSTINGTO CALL HER DAUGHTER AND I HAVE DIALLED THE PHONE ABOUT 5X AND IT WAS EITHER BUSY AND I LEFT A VOICEMAIL 2X. HOWEVER, SHE TRIED TO KEEP ME IN THE ROOM TO KEEP CALLING HER DAUGHTER. SHE SEEMS TO BE A BIT IRRITABLE WITH PERIODS OF CONFUSION AT THIS TIME. NO CARDIAC OR RESPIRATORY DISTRESS NOTED. NO SOB NOTED. PO2 SAT AT 98% ON 2L/MIN. PATIENTS BREATHING IS EVEN AND UNLABORED. PATIENTS IV ACCESS ON R FOREARM G22 IS INTACT AND FLUSHING WELL. WITH LR RUNNING AT 75ML/HR. EDOUARD CATH IS PRESENT INTACT AND PATENT AND DRAINNG WITH CLEAR YELLOW URINE. SAFETY MEASURES ARE IN PLACE, BED IS LOCKED AND PLACED IN THE LOWEST POSITION, SIDE RAILS UP X 2. CALL LIGHT IS WITHIN REACH. WILL ENDORSE CARE TO DAY SHIFT.
[2019-12-20] MEDS: CARBIDOPA/LEVODOPA 25/100 MG 1 UDTAB PO SCH ×4 (08:20→20:44)
[2019-12-20] MEDS: LamoTRIgine 100 MG TABLET PO SCH (08:20)
[2019-12-20] MEDS: MULTIVIT W/MINERALS 1 TAB TABLET PO SCH (08:20)
[2019-12-20] MEDS: GABAPENTIN 300 MG CAPSULE PO SCH ×3 (08:20→17:15)
[2019-12-20] MEDS: MINERAL OIL/PETROLATUM,WHITE 120 GM JAR TP SCH (08:20)
[2019-12-20] MEDS: ATORVASTATIN 40 MG TABLET PO SCH (08:20)
[2019-12-20] MEDS: DULOXETINE HCL 30 MG CAPSULE.DR PO SCH (08:26)
[2019-12-20] MEDS: IV LR 1000 ML 1,000 ML IV PRN (15:54)
[2019-12-20 16:00] VITALS: BP 130/67
--- NOTE | 2019-12-20 16:30 | NUR ---
DAUGHTER SPOKE TO SHAWN LISA CJ DUMONT SPOKE TO SHAWN LISA, IN THE PTS ROOM.
[2019-12-20] MEDS: ENOXAPARIN SODIUM 40 MG/0.4 ML DISP.SYRIN SQ SCH (17:18)
--- NOTE | 2019-12-20 17:56 | NUR ---
D/C EDOUARD EDOUARD CATH DCD PER MD ORDERS WILL MONITOR FOR OUTPUT S/P D/C EDOUARD
--- NOTE | 2019-12-20 18:12 | NUR ---
RN CLOSING NOTES PATIENT IN BED AWAKE. PATIENT IS ALERT AND ORIENTED X 2 AT THIS TIME. NO CARDIAC OR RESPIRATORY DISTRESS NOTED. NO SOB NOTED. PO2 SAT AT 98% ON 2L/MIN. PATIENTS BREATHING IS EVEN AND UNLABORED. PATIENTS IV ACCESS ON R FOREARM G22 IS INTACT AND FLUSHING WELL. WITH LR RUNNING AT 75ML/HR. EDOUARD CATH WAS DISCONTINUED. WILL MONITOR FOR URINE OUTPUT. SAFETY MEASURES ARE IN PLACE, BED IS LOCKED AND PLACED IN THE LOWEST POSITION, SIDE RAILS UP X 2. CALL LIGHT IS WITHIN REACH. WILL ENDORSE CARE TO DAY SHIFT.
--- NOTE | 2019-12-20 18:32 | NUR ---
URINE OUTPUT PT ALREADY VOIDED AFTER EDOUARD WAS DCD. PT VOIDED 60ML.
--- NOTE | 2019-12-20 19:20 | NUR ---
MS RN OPENING NOTES PATIENT AWAKE IN BED. A/OX3. ON 2L NC; NO S/S OF ACUTE RESPIRATORY DISTRESS; BREATHING IS EVEN AND UNLABORED. NO C/O PAIN AT THIS TIME. SURGICAL DRESSING SITE ON RIGHT HIP IS DRY AND INTACT. IV PRESENT ON RIGHT FA, SIZE 22, INTACT & PATENT WITH LR RUNNING AT 75 ML/HR. SAFETY MEASURES IN PLACE AND PATIENT'S NEEDS MET. BED LOCKED, ALARM ON, HOB ELEVATED, SIDE RAILS X2, CALL LIGHT WITHIN REACH. WILL CONTINUE TO MONITOR.
[2019-12-20 20:00] VITALS: BP 146/83
[2019-12-20] MEDS: LATANOPROST EYE DROP 0.005% 2.5 ML BOTTLE EACHEYE SCH (21:16)
[2019-12-20] MEDS: MIRTAZAPINE 15 MG TABLET PO SCH (21:16)
[2019-12-21 01:05] VITALS: BP 139/86
[2019-12-21] MEDS: HYDROCODONE/APAP 5/325MG 1 EACH TABLET PO PRN ×3 (01:06→14:27)
--- NOTE | 2019-12-21 01:06 | NUR ---
MS RN NOTES PATIENT C/O OF RIGHT HIP PAIN RATED 9/10. PER PATIENT'S REQUEST ADMINISTERED PRN NORCO 5MG PO. VITAL SIGNS - BP: 139/86, HR: 95. SAFETY MEASURES IN PLACE AND CALL LIGHT WITHIN REACH. WILL CONTINUE TO MONITOR.
--- NOTE | 2019-12-21 07:35 | NUR ---
MS RN NOTES RECEIVED PATIENT IN BED, ALERT AND AWAKE ORIENTED X3. HOB ELEVATED. REMAIN ON O2 AT 2L/MIN VIA NC STACEY WELL. RIGHT FA # 22 INFUSING LR AT 75ML/HR STACEY WELL. S/P RIGHT HIP SURGERY WITH DRESSING IN PLACE. NO BLEEDING OBSERVED. DENIES ANY C/O PAIN NOR DISCOMFORT AT THIS TIME. BED IN LOWEST POSITION, LOCKED. BED ALARM ON. CALL LIGHT WITHIN REACH. ABLE TO VERBALIZE NEEDS.
--- NOTE | 2019-12-21 07:39 | NUR ---
MS RN CLOSING NOTES PATIENT SLEEPING IN BED, EASY TO AWAKEN. A/OX3. ON 2L NC; NO S/S OF SOB OR PAIN NOTED AT THIS TIME. SURGICAL DRESSING SITE ON RIGHT HIP IS DRY AND INTACT. IV PRESENT ON RIGHT FA, SIZE 22, INTACT & PATENT WITH LR RUNNING AT 75 ML/HR. SAFETY MEASURES IN PLACE AND PATIENT'S NEEDS MET. BED LOCKED, ALARM ON, HOB ELEVATED, SIDE RAILS X2, CALL LIGHT WITHIN REACH. ENDORSED TO DAY SHIFT RN PLAN OF CARE.
[2019-12-21 08:00] VITALS: BP 146/85
[2019-12-21] MEDS ORDERED: ENOX40DI SQ (08:34)
[2019-12-21] MEDS: MINERAL OIL/PETROLATUM,WHITE 120 GM JAR TP SCH (09:04)
[2019-12-21] MEDS: GABAPENTIN 300 MG CAPSULE PO SCH ×3 (09:04→16:11)
[2019-12-21] MEDS: ATORVASTATIN 40 MG TABLET PO SCH (09:04)
[2019-12-21] MEDS: MULTIVIT W/MINERALS 1 TAB TABLET PO SCH (09:04)
[2019-12-21] MEDS: CARBIDOPA/LEVODOPA 25/100 MG 1 UDTAB PO SCH ×5 (09:04→21:43)
[2019-12-21] MEDS: LamoTRIgine 100 MG TABLET PO SCH (09:04)
[2019-12-21] MEDS: DULOXETINE HCL 30 MG CAPSULE.DR PO SCH (09:04)
[2019-12-21] MEDS: IBUPROFEN 600 MG TABLET PO PRN (18:01)
--- NOTE | 2019-12-21 18:49 | NUR ---
MS RN NOTES PATIENT RESTING COMFORTABLY IN BED. HOB ELEVATED. ON ROOM AIR WITH SPO2 94-96%. RIGHT FA # 22 SL INTACT AND PATENT. S/P RIGHT HIP SURGERY WITH DRESSING IN PLACE, CHANGED BY MARIA L GARCÍA. AMBULATED WITH REHAB STACEY WELL. DENIES ANY C/O PAIN NOR DISCOMFORT AT THIS TIME. BED IN LOWEST POSITION, LOCKED. BED ALARM ON. CALL LIGHT WITHIN REACH. ABLE TO VERBALIZE NEEDS. IN NO APPARENT DISTRESS.
--- NOTE | 2019-12-21 19:29 | NUR ---
MS RN OPENING NOTES PATIENT SLEEPING IN BED, EASY TO AWAKEN. A/OX3. ON RA; NO S/S OF ACUTE RESPIRATORY DISTRESS; BREATHING IS EVEN AND UNLABORED. NO C/O PAIN AT THIS TIME. SURGICAL DRESSING SITE ON RIGHT HIP IS DRY AND INTACT. IV PRESENT ON RIGHT FA, SIZE 22, INTACT & PATENT, HEP LOCKED. SAFETY MEASURES IN PLACE AND PATIENT'S NEEDS MET. BED LOCKED, ALARM ON, HOB ELEVATED, SIDE RAILS X2, CALL LIGHT WITHIN REACH. WILL CONTINUE TO MONITOR
[2019-12-21 20:00] VITALS: BP 120/73
[2019-12-21] MEDS: ENOXAPARIN SODIUM 40 MG/0.4 ML DISP.SYRIN SQ SCH ×2 (21:00→21:44)
[2019-12-21] MEDS: MIRTAZAPINE 15 MG TABLET PO SCH ×2 (21:43→22:00)
[2019-12-21] MEDS: LATANOPROST EYE DROP 0.005% 2.5 ML BOTTLE EACHEYE SCH (21:45)
--- NOTE | 2019-12-21 22:28 | NUR ---
MS RN NOTES PATIENT BECAME CONFUSED, REFUSING MEDICATIONS, PULLED OUT IV AND BECAME AGITATED. ON RA PATIENT'S SPO2 83%. PATIENT PLACED ON 4L NC; SPO2 98%. VITAL SIGNS - BP: 118/85, HR: 108, RR: 20. ABLE TO REORIENT PATIENT TO PLACE, TIME, AND HOSPITAL UNIT. EXPLAINED TO PATIENT IMPORTANCE OF KEEPING NASAL CANULA ON; PATIENT VERBALIZED UNDERSTANDING. WILL CONTINUE TO MONITOR.
--- NOTE | 2019-12-21 22:36 | NUR ---
MS RN NOTES PATIENT'S SPO2 97 ON 3L NC. A/OX3. PATIENT STILL REFUSING SCHEDULED MEDICATION AT 2100 AND 2200. PATIENT STATES THAT SHE DOES NOT WANT TO BE CONFUSED AGAIN. LOVENOX 40 MG RETURNED TO PYXIS; SINEMET 1 TAB AND REMERON 7.5 MG TAB WASTED AFTER OPENING
--- NOTE | 2019-12-21 22:45 | NUR ---
MS RN NOTES PATIENT REFUSING NEW IV ACCESS AT THIS TIME
--- NOTE | 2019-12-22 07:35 | NUR ---
MS RN NOTES RECEIVED PATIENT IN BED, ALERT AND AWAKE ORIENTED X3. HOB ELEVATED. ON O2 AT 2L/MIN VIA NC STACEY WELL. S/P RIGHT HIP SURGERY WITH DRESSING IN PLACE. DENIES ANY C/O PAIN NOR DISCOMFORT AT THIS TIME. BED IN LOWEST POSITION, LOCKED. BED ALARM ON. CALL LIGHT WITHIN REACH. ABLE TO VERBALIZE NEEDS.
--- NOTE | 2019-12-22 07:52 | NUR ---
MS RN CLOSING NOTES PATIENT AWAKE IN BED. A/OX2-3. ON 2L NC; NO S/S OF SOB OR PAIN NOTED AT THIS TIME. SURGICAL DRESSING SITE ON RIGHT HIP IS DRY AND INTACT. NO IV ACCESS PRESENT, PATIENT REFUSES. SAFETY MEASURES IN PLACE AND PATIENT'S NEEDS MET. BED LOCKED, ALARM ON, HOB ELEVATED, SIDE RAILS X2, CALL LIGHT WITHIN REACH. ENDORSED TO DAY SHIFT RN PLAN OF CARE
[2019-12-22 08:00] VITALS: BP 158/86
[2019-12-22] MEDS: IBUPROFEN 600 MG TABLET PO PRN ×2 (08:59→15:14)
[2019-12-22] MEDS: GABAPENTIN 300 MG CAPSULE PO SCH ×3 (08:59→16:39)
[2019-12-22] MEDS: MULTIVIT W/MINERALS 1 TAB TABLET PO SCH (08:59)
[2019-12-22] MEDS: LamoTRIgine 100 MG TABLET PO SCH (08:59)
[2019-12-22] MEDS: ATORVASTATIN 40 MG TABLET PO SCH (08:59)
[2019-12-22] MEDS: MINERAL OIL/PETROLATUM,WHITE 120 GM JAR TP SCH (09:00)
[2019-12-22] MEDS: DULOXETINE HCL 30 MG CAPSULE.DR PO SCH (09:00)
[2019-12-22] MEDS: CARBIDOPA/LEVODOPA 25/100 MG 1 UDTAB PO SCH ×4 (09:00→21:42)
[2019-12-22 16:00] VITALS: BP 132/69
--- NOTE | 2019-12-22 18:42 | NUR ---
MS RN NOTES PATIENT RESTING COMFORTABLY IN BED. HOB ELEVATED. ON ROOM AIR WITH SPO2 96-98%. DENIES ANY C/O PAIN NOR DISCOMFORT AT THIS TIME. BED IN LOWEST POSITION, LOCKED. BED ALARM ON. CALL LIGHT WITHIN REACH. ABLE TO VERBALIZE NEEDS. IN NO APPARENT DISTRESS.
--- NOTE | 2019-12-22 19:00 | NUR ---
RN MS OPENING NOTES RECEIVED PATIENT IN BED AWAKE ALERT AND ORIENTED X3, ABLE TO MAKE NEEDS KNOWN, RESPIRATIONS EVEN AND UNLABORED WITH EQUAL RISE AND FALL OF CHEST, DENIES ANY PAIN OR DISCOMFORT AT THIS TIME, BED VILCHIS OFFERED, NO IV ACCESS AT THIS TIME PT REFUSES, MD AWARE. RIGHT HIP SURGICAL SITE WITH DSG C/D/I. ORIENTED TO STAFF AND CALL LIGHT AND KEPT WITHIN REACH, SAFETY PRECAUTIONS IN PLACE, LOW BED AND LOCKED, FLUIDS OFFERED ALL NEEDS ATTENDED AT THIS TIME, WILL CONTINUE TO MONITOR AND ATTEND TO NEEDS, PER PATIENT DAUGHTER TOOK TABLET. REMAINS COMFORTABLE AT THIS TIME.
[2019-12-22 20:00] VITALS: BP 138/86
[2019-12-22] MEDS: LATANOPROST EYE DROP 0.005% 2.5 ML BOTTLE EACHEYE SCH (21:43)
[2019-12-22] MEDS: MIRTAZAPINE 15 MG TABLET PO SCH (21:44)
[2019-12-22] MEDS: ENOXAPARIN SODIUM 40 MG/0.4 ML DISP.SYRIN SQ SCH (21:47)
--- NOTE | 2019-12-23 05:07 | NUR ---
rn ms notes no bowel movement noted per pt has not had one recently . offered milk of magnesia and educated, patient agreed, milk of magnesia given will continue to monitor.
--- NOTE | 2019-12-23 06:12 | NUR ---
RN MS CLOSING NOTES PATIENT IN BED AWAKE ALERT AND ORIENTED X3, ABLE TO MAKE NEEDS KNOWN, RESPIRATIONS EVEN AND UNLABORED WITH EQUAL RISE AND FALL OF CHEST, CURRENTLY ON 2L VIA NC TOLERATING WELL, DENIES ANY PAIN OR DISCOMFORT AT THIS TIME, BED VILCHIS OFFERED THROUGHOUT SHIFT, NO IV ACCESS AT THIS TIME PT REFUSES, MD AWARE. RIGHT HIP SURGICAL SITE WITH DSG C/D/I. CALL LIGHT KEPT WITHIN REACH, SAFETY PRECAUTIONS IN PLACE, LOW BED AND LOCKED BED ALARM IN PLACE, FLUIDS OFFERED THROUGHOUT SHIFT, PERINEAL CARE PROVIDED, LINENS CHANGED REMAINS CLEAN , HEELS OFFLOADED, ALL NEEDS ATTENDED AT THIS TIME, WILL CONTINUE TO MONITOR AND ENDORSE TO NEXT SHIFT, SCD'S IN PLACE. REMAINS COMFORTABLE AT THIS TIME.
--- NOTE | 2019-12-23 07:36 | NUR ---
MS RN NOTES RECEIVED PATIENT IN BED, ALERT AND AWAKE ORIENTED X3. HOB ELEVATED. NO SOB. S/P RIGHT HIP SURGERY WITH DRESSING IN PLACE. DENIES ANY C/O PAIN NOR DISCOMFORT AT THIS TIME. BED IN LOWEST POSITION, LOCKED. BED ALARM ON. CALL LIGHT WITHIN REACH. ABLE TO VERBALIZE NEEDS.
[2019-12-23 08:00] VITALS: BP 161/97
[2019-12-23] MEDS: ATORVASTATIN 40 MG TABLET PO SCH (08:57)
[2019-12-23] MEDS: MULTIVIT W/MINERALS 1 TAB TABLET PO SCH (08:57)
[2019-12-23] MEDS: DULOXETINE HCL 30 MG CAPSULE.DR PO SCH (08:57)
[2019-12-23] MEDS: IBUPROFEN 600 MG TABLET PO PRN (08:57)
[2019-12-23] MEDS: LamoTRIgine 100 MG TABLET PO SCH (08:57)
[2019-12-23] MEDS: GABAPENTIN 300 MG CAPSULE PO SCH ×3 (08:57→17:46)
[2019-12-23] MEDS: CARBIDOPA/LEVODOPA 25/100 MG 1 UDTAB PO SCH ×3 (08:57→17:46)
[2019-12-23] MEDS: MINERAL OIL/PETROLATUM,WHITE 120 GM JAR TP SCH (08:58)
[2019-12-23 16:00] VITALS: BP 140/92
--- NOTE | 2019-12-23 18:42 | NUR ---
MS RN NOTES PATIENT RESTING COMFORTABLY IN BED. PATIENT FOR DISCHARGE. DISCHARGE INSTRUCTIONS GIVEN VIA PHONE AND REPORT TO YUSRA LACEY (CHARGE NURSE) AT [facility] . ALL BELONGINGS ACCOUNTED FOR. NO IV ACCESS. DISCHARGE PACKET DONE. DENIES ANY C/O PAIN NOR DISCOMFORT AT THIS TIME. RIGHT HIP DRESSING INTACT. ON ROOM AIR WITH SPO2 OF 96%. NO S/S OF RESPIRATORY DISTRESS. ABLE TO VERBALIZE NEEDS. CALL LIGHT WITHIN REACH. AWAITING FOR AMBULANCE TRANSPORTATION. ENDORSED TO ONCOMING SHIFT.
[2019-12-23 20:00] VITALS: BP 145/73
--- NOTE | 2019-12-23 20:20 | NUR ---
DC NOTES: AMBULANCE CAME TO [facility] PT. REPORT GIVEN TO EMT. DC PAPER WORKS HANDED OVER TO EMT. ALL DC PAPERS PREPARED BY DAY YUSRA HAM. PT SIGNED EVERYTHING, SON AND DAUGHTER AWARE OF DC. REPORT GIVEN TO DEEPTHI MENG BY BRITTNI HAM. INVENTORY OF BELONGINGS COMPLETED BY DAY SHIFT. ARM BAND REMOVED, IV ACCESS REMOVED, PRESSURED DRESSING APPLIED. VS TAKEN AND RECORDED. PT ALSO HAVE HER OWN COPY OF DC PAPERS. ALL BELONGINGS SENT WITH PT UPON DC. PT LEFT IN STABLE CONDITION, ACCOMPANIED BY EMT. DC TO [facility].
== END 2019-12-23 20:20 | DRG 481 ==
LOC: ER 12:14 → MED 15:43
PROVIDERS: ADMIT Internal Medicine; ATTEND Internal Medicine
PROC: 0QS604Z Reposition Right Upper Femur with Internal Fixation Device, Open Approach (ICD-10-PCS; principal; 2019-12-19)
DX: S72.011A Unspecified intracapsular fracture of right femur, initial encounter for closed fracture (principal); M25.00 Hemarthrosis, unspecified joint; J98.11 Atelectasis; Y92.89 Other specified places as the place of occurrence of the external cause; F03.90 Unspecified dementia, unspecified severity, without behavioral disturbance, psychotic disturbance, mood disturbance, and anxiety; I10 Essential (primary) hypertension; Z86.73 Personal history of transient ischemic attack (TIA), and cerebral infarction without residual deficits; Z87.891 Personal history of nicotine dependence; Z79.899 Other long term (current) drug therapy; Z79.82 Long term (current) use of aspirin; W01.0XXA Fall on same level from slipping, tripping and stumbling without subsequent striking against object, initial encounter; Z96.642 Presence of left artificial hip joint; S00.83XA Contusion of other part of head, initial encounter; G62.9 Polyneuropathy, unspecified; E78.5 Hyperlipidemia, unspecified; D64.9 Anemia, unspecified; F32.9 Major depressive disorder, single episode, unspecified; G20 Parkinson's disease; F02.80 Dementia in other diseases classified elsewhere, unspecified severity, without behavioral disturbance, psychotic disturbance, mood disturbance, and anxiety
CPT/HCPCS: 36415; 70450-TC; 71045-TC; 73501; 73502; 73700-TC; 80048-TC; 81000-TC; 83735-TC; 84100-TC; 84439-TC; 84443-TC; 84702-TC; 85025-TC; 85027-TC; 85730-TC; 86850-TC; 87081-TC; 93307-TC; 97110-TC; 97116-TC; 97530-TC; A4217; A6209; C1713; G0378; J0690; J1100; J1170; J1650; J1885; J2270; J2405; J2704; J3490; J7060; J7120

== ENCOUNTER 2020-07-08 13:50 | Emergency (ER) | payer OTHER ==
[~2020-07-08] VITALS: Ht 175.3 cm; Wt 72.6 kg
[~2020-07-08 13:50] MED LIST changes: -CARB-93 PO; +CARB1TAB21 PO; -CEPH-569 PO; -CRAN400T3 PO; +CRAN425C6 PO; -DULO60CA45 PO; +DULO60CA64 PO; +ENOX40DI SQ; +GABA-532 PO; -GABA-534 PO; +LATA2.5D15 EACHEYE; -LATA2.5D7 EACHEYE; -LOSA25TA27 PO; -MEGE400O4 PO; -MELA3TAB41 PO; +MIRT7.5T10 PO; -OMEP20TA5 PO; +UBID100C13 PO
--- NOTE | 2020-07-08 14:03 | NUR ---
BIBRA FROM HOME TO ER BED 7. AAOX3. NOT IN RESP DISTRESS, BREATHING EVEN AND UNLABORED. BROUGHT IN FOR L KNEE PAIN S/P TRIP AND FALL. + FOR HEAD TRAUMA BUT DENIES LOC. NOTED ABRASION ON THE L KNEE. ROM INTACT. MD AT [facility]. AWAITING ORDERS
--- NOTE | 2020-07-08 14:24 | NUR ---
PT DENIED ANY TREATMENT DONE TO HER. IS AWARE.
--- NOTE | 2020-07-08 14:30 | NUR ---
CALLED AND SPOKE WITH CAREGIVER AND SHE WILL NOT BE ABLE TO HARD TILE SETTER APPRENTICE THE PT. CALLED THE DAUGHTER WELL BUT NO ANSWER, MESSAGE AND AND AWAITING CALL BACK
--- NOTE | 2020-07-08 14:43 | NUR ---
PHOEBEAmy FAROOQ, DAUGHTER - [phone]
[2020-07-08 15:12] LABS: BASOPHILS % (AUTO) 0.7 % (0.0-2.0); EOSINOPHILS % (AUTO) 2.8 % (0.0-6.0); HEMATOCRIT 36 % (33-45); HEMOGLOBIN 12.1 g/dL (11.5-14.8); LYMPHOCYTES % (AUTO) 15.6 % (20.0-44.0); MEAN CORPUSCULAR HGB CONC 33 g/dl (31.0-36.0); MEAN CORPUSCULAR VOLUME 91 fL (82-100); MONOCYTES # (AUTO) 0.6 /CMM (0.1-1.30); MONOCYTES % (AUTO) 10.2 % (2.0-12.0); NEUTROPHILS # (AUTO) 4.4 /CMM (1.8-8.9); NEUTROPHILS % (AUTO) 70.7 % (43.0-81.0); PLATELET COUNT (AUTO) 348 /CMM (150-450); WHITE BLOOD COUNT (AUTO) 6.3 K/uL (4.3-11.0)
[2020-07-08 15:50] LABS: CALCIUM, SERUM 9.2 mg/dL (8.5-10.1); CARBON DIOXIDE 30 mmol/L (21-32); CHLORIDE 98 mmol/L (98-107); CREATININE 0.8 mg/dL (0.6-1.3); GLUCOSE 89 mg/dL (74-106); POTASSIUM 4.2 mmol/L (3.5-5.1); SODIUM SERUM 137 mmol/L (136-145); UREA NITROGEN, BLOOD 13 mg/dL (7-18)
[2020-07-08 15:55] LABS: ALANINE AMINOTRANSFERASE 27 U/L (12-78); ALBUMIN 3.1 g/dL (3.4-5.0); ALKALINE PHOSPHATASE 130 U/L (46-116); ASPARTATE AMINOTRANSFERASE 21 U/L (15-37); BILIRUBIN,DIRECT 0.1 mg/dL (0.0-0.2); BILIRUBIN,TOTAL 0.5 mg/dL (0.2-1.0); TOTAL PROTEIN, SERUM 7.2 g/dL (6.4-8.2)
--- NOTE | 2020-07-08 16:45 | NUR ---
PT AMBULATED WELL AND TOLEARTED WITH AN AIDE OF A FRONT WHEELED WALKER.
--- NOTE | 2020-07-08 17:14 | NUR ---
PT TO RADIOLOGY FOR XRAY
[2020-07-08 18:35] VITALS: BP 154/85
== END 2020-07-08 18:36 | disposition home or self-care (01) ==
LOC: ER 13:55
DX: S80.02XA Contusion of left knee, initial encounter (principal); F03.90 Unspecified dementia, unspecified severity, without behavioral disturbance, psychotic disturbance, mood disturbance, and anxiety; I10 Essential (primary) hypertension; Z79.82 Long term (current) use of aspirin; Z79.899 Other long term (current) drug therapy; Z86.73 Personal history of transient ischemic attack (TIA), and cerebral infarction without residual deficits; W01.0XXA Fall on same level from slipping, tripping and stumbling without subsequent striking against object, initial encounter; Y93.89 Activity, other specified; Y92.89 Other specified places as the place of occurrence of the external cause; Y99.8 Other external cause status
CPT/HCPCS: 36415; 71045-TC; 72170-TC; 73564-TC; 80048-TC; 80076-TC; 84484-TC; 85025-TC

== ENCOUNTER 2020-12-04 10:02 | Inpatient (IN) | payer OTHER ==
[2020-12-04] VITALS (36 sets, daily range): BP systolic 36–179; BP diastolic 16–130
[~2020-12-04] VITALS: Ht 167.6 cm; Wt 74.4 kg
--- NOTE | 2020-12-04 10:34 | NUR ---
CALLED CODE STROKE
[2020-12-04] MEDS ORDERED: IV NS 0.9% 250 ML IV ONE (10:39)
[2020-12-04] MEDS ORDERED: CT SWABBABLE VALVE TRANS SET 1 EA INFUS.SET MC ONE (10:39)
[2020-12-04] MEDS ORDERED: IOHEXOL-350 100 ML VIAL IV ONE (10:39)
--- NOTE | 2020-12-04 10:41 | NUR ---
CALLED [facility] [phone] WILSON
[2020-12-04 10:53] LABS: BASOPHILS % (AUTO) 0.1 % (0.0-2.0); EOSINOPHILS % (AUTO) 0.1 % (0.0-6.0); HEMATOCRIT 50 % (33-45); HEMOGLOBIN 16.2 g/dL (11.5-14.8); LYMPHOCYTES # (AUTO) 0.6 K/uL (0.8-4.8); LYMPHOCYTES % (AUTO) 8.6 % (20.0-44.0); MEAN CORPUSCULAR HGB CONC 32 g/dl (31.0-36.0); MEAN CORPUSCULAR VOLUME 89 fL (82-100); MONOCYTES # (AUTO) 0.4 K/uL (0.1-1.30); MONOCYTES % (AUTO) 5.4 % (2.0-12.0); NEUTROPHILS # (AUTO) 6.1 K/uL (1.8-8.9); NEUTROPHILS % (AUTO) 85.8 % (43.0-81.0); PLATELET COUNT (AUTO) 548 K/uL (150-450); WHITE BLOOD COUNT (AUTO) 7.1 K/uL (4.3-11.0)
[2020-12-04 11:01] LABS: CARBON DIOXIDE 21 mmol/L (21-32); CHLORIDE 103 mmol/L (98-107); CREATININE 1.8 mg/dL (0.6-1.3); GLUCOSE 122 mg/dL (74-106); POTASSIUM 4.9 mmol/L (3.5-5.1); SODIUM SERUM 141 mmol/L (136-145); UREA NITROGEN, BLOOD 33 mg/dL (7-18)
[2020-12-04] MEDS ORDERED: BUPR-96 PO (11:10)
[2020-12-04] MEDS ORDERED: ASPI-1420 PO (11:10)
[2020-12-04] MEDS ORDERED: MELA3TAB41 PO (11:10)
[2020-12-04] MEDS ORDERED: ROSU20TA2 PO (11:10)
[2020-12-04] MEDS ORDERED: CHOL100062 PO (11:10)
[2020-12-04] MEDS ORDERED: AMLO2.5T2 PO (11:10)
[2020-12-04] MEDS ORDERED: ACET-868 PO (11:10)
[2020-12-04] MEDS ORDERED: POLY17PO4 PO (11:10)
[2020-12-04 11:11] LABS: CHOLESTEROL 100 mg/dL (<200); HDL CHOLESTEROL 69 mg/dL (40-60); LDL 34 mg/dL (0-99); TRIGLYCERIDES 76 mg/dL (30-150)
[2020-12-04 11:14] LABS: MAGNESIUM 2.5 mg/dL (1.8-2.4)
--- NOTE | 2020-12-04 11:16 | NUR ---
CALLED TELE MED REQUESTING CALL BACK FROM DR. WILSON
[2020-12-04 11:19] LABS: THYROID STIMULATING HORMONE 4.349 uIU/mL (0.358-3.74)
[2020-12-04] MEDS ORDERED: IV NS 0.9% 2,000 ML IV ONE (11:30)
[2020-12-04] MEDS ORDERED: IV NS 0.9% 500 ML BAG IV ONE (11:30)
--- NOTE | 2020-12-04 11:33 | NUR ---
GOING TO 250 ICU
--- NOTE | 2020-12-04 11:36 | NUR ---
ROOM ASSIGNMENT CHANGED TO 262
--- NOTE | 2020-12-04 11:53 | NUR ---
CALLED ICU TO GIVE REPORT, NURSE UNABLE TO TAKE IT
--- NOTE | 2020-12-04 11:57 | NUR ---
DUPLICATE ORDER (NS 1L)
--- NOTE | 2020-12-04 13:10 | NUR ---
RESEARCH ENVIRONMENTAL ENGINEER ADMITTING NOTES RECEIVED PATIENT FROM ER, A/O X 2-3, WITH HISTORY OF DEMENTIA. ON OXYGEN 3LPM VIA NC SATING 100%, IV ACCESS ON RAC #18, SAFETY MEASURES INITIATED, BED IN LOWEST LOCKED POSITION WITH SIDE RAILS UP X2, CALL LIGHT WITHIN REACH, VSS, AWAITING FOR ADMITTING ORDERS.
--- NOTE | 2020-12-04 14:00 | NUR ---
MEDICAL DONATION PROFESSIONAL NOTES STILL AWAITING FOR ADMITTING ORDERS, NOTIFIED. WILL F/U.
[2020-12-04] MEDS ORDERED: ACETAMINOPHEN 325 MG TABLET PO PRN (15:00)
[2020-12-04] MEDS ORDERED: MAGNESIUM HYDROXIDE 30 ML UDC PO PRN (15:00)
[2020-12-04] MEDS ORDERED: IV D5/0.45 NACL 1,000 ML IV PRN ×2 (15:00→22:01)
[2020-12-04] MEDS ORDERED: Z GUARD REMEDY 2 OZ OINT TP PRN (15:00)
[2020-12-04] MEDS ORDERED: ONDANSETRON HCL/PF 4 MG/2 ML VIAL IVP PRN (15:00)
[2020-12-04] MEDS ORDERED: MAG HYDROX/AL HYDROX/SIMETH 30 ML UDC PO PRN (15:00)
--- NOTE | 2020-12-04 17:00 | NUR ---
SPECIAL AGENT GROUP INSURANCE NOTES SEEN AND EXAMINED BY EDELMIRA BERG AT THIS TIME.
[2020-12-04] MEDS: BLOOD SUGAR DIAGNOSTIC 1 EACH STRIP IN SCH (17:28)
[2020-12-04] MEDS ORDERED: BLOOD SUGAR DIAGNOSTIC 1 EACH STRIP IN SCH (17:30)
--- NOTE | 2020-12-04 19:05 | NUR ---
TREATING PLANT PUMPER NOTES SPOKE TO DR. WHITE, PATIENT IS TOO LETHARGIC, MD ORDER NPO AT THIS TIME AND TYLENOL 650 MG Q6HR RC NEEDED FOR FEVER/PAIN. ORDERS MADE AND CARRIED OUT. PATIENT IS IN STABLE CONDITION, NO SIGNS OF DISTRESS NOTED AT THIS TIME, CAREGIVER AT BEDSIDE, IV ACCESS ON RAC #18 WITH D5 1/2 NS RUNNING @ 75ML/HR, SAFETY MEASURES MAINTAINED, WILL ENDORSE TO GROUP CONTRACT ANALYST NURSE FOR RAMIREZ.
[2020-12-04] MEDS ORDERED: ACETAMINOPHEN 650 MG/SUPP.RECT RC PRN (19:30)
--- NOTE | 2020-12-04 19:30 | NUR ---
RN NOTE RECEIVED SHIFT REPORT, PATIENT GETTING ECHO DONE AT THIS TIME.
[2020-12-04] MEDS ORDERED: IV NS 0.9% 1,000 ML IV ONE (21:00)
[2020-12-04 21:19] LABS: BASOPHILS % (AUTO) 0.1 % (0.0-2.0); EOSINOPHILS % (AUTO) 0.1 % (0.0-6.0); HEMATOCRIT 44 % (33-45); HEMOGLOBIN 14.4 g/dL (11.5-14.8); LYMPHOCYTES # (AUTO) 0.6 K/uL (0.8-4.8); LYMPHOCYTES % (AUTO) 5.9 % (20.0-44.0); MEAN CORPUSCULAR HGB CONC 33 g/dl (31.0-36.0); MEAN CORPUSCULAR VOLUME 89 fL (82-100); MONOCYTES # (AUTO) 0.3 K/uL (0.1-1.30); MONOCYTES % (AUTO) 3.6 % (2.0-12.0); NEUTROPHILS # (AUTO) 8.6 K/uL (1.8-8.9); NEUTROPHILS % (AUTO) 90.3 % (43.0-81.0); PLATELET COUNT (AUTO) 444 K/uL (150-450); RED BLOOD CELL COUNT(AUTO) 4.94 MIL/uL (4.0-5.2); WHITE BLOOD COUNT (AUTO) 9.6 K/uL (4.3-11.0)
[2020-12-04 21:37] LABS: CALCIUM, SERUM 8.9 mg/dL (8.5-10.1); CARBON DIOXIDE 23 mmol/L (21-32); CHLORIDE 104 mmol/L (98-107); CREATININE 2.1 mg/dL (0.6-1.3); GLUCOSE 105 mg/dL (74-106); POTASSIUM 5.7 mmol/L (3.5-5.1); SODIUM SERUM 139 mmol/L (136-145); UREA NITROGEN, BLOOD 42 mg/dL (7-18)
[2020-12-04] MEDS ORDERED: ASPIRIN 300 MG/SUPP.RECT RC SCH (22:00)
--- NOTE | 2020-12-04 22:00 | NUR ---
RN NOTE - CODE STROKE PATIENT IS VERY CONFUSED WAS NOT ABLE TO ANSWER HER AGE OR MONTH, BLE VERY WEEK CAN NOT STAY UP FOR 5 SECONDS, RIGHT ARM DRIFT. APHAGIA NOTED. TODD DANA CALLED AT 2044. SHILOH JOHNSON AUTOMATIC MOLD SANDER NOTIFIED. BLOOD SUGAR 85. PATIENT UNABLE TO SWALLOW. RN ENROLLER NAVA MAHMOOD RN AT BEDSIDE @2025. TELE MED BROUGHT TO BED SIDE. HEAD CT ORDERED 2046 , PATIENT TO CT 2049 AND COMPLETED BY 2099. VALIDATION SCIENTIST AT BED SIDE AT 2109. EKG COMPLETED 2116. DR. STRONG REPORTED HEAD CT RESULTS: NO CHANGES FROM PRIOR EXAM THAT WAS TAKEN 10 HOURS PRIOR. NIHSS SCORE 12 AT 2120. TELE NEURO ACTIVATED 2135. NEUROLOGIST DR. PATHAK FROM TELE- NEURO CALLED 2152. DISCUSSED HEAD CT RESULTS. DR. PATHAK RECOMMENDS/ ORDERS ASPIRIN 300MG RECTALLY, AND DOES NOT RECOMMEND CURRENT FLUIDS OF D51/2 NS AND TO KEEP PERMISSIVE BP, SHILOH JOHNSON NOTIFIED. DR. NOLASCO ALSO DID NOT WANT TO DO VIDEO ASSESSMENT D/T PATIENT SHOWS NO CHANGE IN HEAD CT. ALSO ACKNOWLEDGED PRIOR HEAD CTA AND NECK CTA. STATED PATIENT WILL NEED MRI THAT HAS ALREADY BEEN ORDERED ROUTINE. RECEIVED ORDERS FROM SHILOH AND CARRIED OUT . Gerry GRACIA WAS CALLED 3X BUT NEVER CAME OR RESPONDED. WILL MONITOR FOR CHANGES.
[2020-12-04] MEDS ORDERED: NOREPINEPHRINE 8MG/250ML RTU 250 ML IV ONE (22:21)
[2020-12-04] MEDS: ENOXAPARIN SODIUM 30 MG/0.3 ML DISP.SYRIN SQ SCH (22:26)
[2020-12-04] MEDS ORDERED: IV NS 0.9% 500 ML IV ONE (22:30)
[2020-12-04] MEDS ORDERED: ASPIRIN 300 MG/SUPP.RECT RC ONE (22:41)
[2020-12-04] MEDS: IV D5/ 0.9% NACL 1,000 ML IV PRN (23:06)
[2020-12-04 23:28] LABS: BILIRUBIN,URINE SMALL (NEGATIVE); COLOR,URINE RED (YELLOW); LEUKOCYTE ESTERASE ,URINE TRACE (NEGATIVE); NITRITE, URINE POSITIVE (NEGATIVE); PROTEIN,URINE 100 mg/dl (NEGATIVE); UGLUCOSE NEGATIVE (NEGATIVE)
[2020-12-04 23:34] LABS: BACTERIA,URINE Few /HPF (None Seen); RBC,URINE 51-80 /HPF (0-2); SQUAMOUS EPITHELIAL CELL,UR Few /HPF (None Seen); WBC,URINE 81-100 /HPF (0-3)
--- NOTE | 2020-12-04 23:45 | NUR ---
RN NOTE PATIENT RESTING COMFORTABLY, VS IS STABLE. UA SENT. RESULTED AND SEEN BY SHILOH JOHNSON NP. ORDERS RECEIVED AND CARRIED OUT.
[2020-12-05] VITALS (51 sets, daily range): BP systolic 77–161; BP diastolic 23–133
[2020-12-05] MEDS: BLOOD SUGAR DIAGNOSTIC 1 EACH STRIP IN SCH ×5 (00:21→23:07)
[2020-12-05 00:37] LABS: CALCIUM, SERUM 7.8 mg/dL (8.5-10.1); CARBON DIOXIDE 24 mmol/L (21-32); CHLORIDE 108 mmol/L (98-107); CREATININE 1.8 mg/dL (0.6-1.3); GLUCOSE 106 mg/dL (74-106); SODIUM SERUM 140 mmol/L (136-145); UREA NITROGEN, BLOOD 43 mg/dL (7-18)
[2020-12-05] MEDS ORDERED: PIPERACILLIN /TAZOBACTAM 3.375 G VIAL IV ONE ×2 (00:47→06:02)
[2020-12-05] MEDS: PIPERACILLIN /TAZOBACTAM 3.375 G in IV D5W 50 ML IV SCH ×3 (00:48→11:41)
[2020-12-05] MEDS ORDERED: INSULIN REGULAR, HUMAN 100 UNIT/ML 10 ML VIAL IV ONE (01:00)
[2020-12-05] MEDS ORDERED: VANCOMYCIN 1.25 GM in IV D5W 250 ML IV ONE (01:00)
[2020-12-05] MEDS ORDERED: IV NS 0.9% 500 ML IV ONE (01:00)
[2020-12-05] MEDS ORDERED: DEXTROSE 50%-WATER 50 ML DISP.SYRIN IVP ONE (01:00)
--- NOTE | 2020-12-05 01:00 | NUR ---
RN NOTE PATIENT SLEEPING, SINUS TACH, NO DISTRESS NOTED
[2020-12-05] MEDS ORDERED: VANCOMYCIN 1 GM VIAL ONE ×2 (01:25→01:26)
[2020-12-05] MEDS ORDERED: INSULIN REGULAR, HUMAN 100 UNIT/ML 3 ML VIAL ONE (01:34)
[2020-12-05 03:30] LABS: BASOPHILS % (AUTO) 0.1 % (0.0-2.0); EOSINOPHILS % (AUTO) 0.3 % (0.0-6.0); HEMATOCRIT 36 % (33-45); HEMOGLOBIN 11.6 g/dL (11.5-14.8); LYMPHOCYTES # (AUTO) 0.5 K/uL (0.8-4.8); MEAN CORPUSCULAR HGB CONC 32 g/dl (31.0-36.0); MEAN CORPUSCULAR VOLUME 90 fL (82-100); MONOCYTES # (AUTO) 0.3 K/uL (0.1-1.30); MONOCYTES % (AUTO) 5.5 % (2.0-12.0); NEUTROPHILS # (AUTO) 4.1 K/uL (1.8-8.9); NEUTROPHILS % (AUTO) 83.1 % (43.0-81.0); PLATELET COUNT (AUTO) 374 K/uL (150-450); RED BLOOD CELL COUNT(AUTO) 4.02 MIL/uL (4.0-5.2); WHITE BLOOD COUNT (AUTO) 4.9 K/uL (4.3-11.0)
[2020-12-05 03:41] LABS: CALCIUM, SERUM 7.6 mg/dL (8.5-10.1); CARBON DIOXIDE 22 mmol/L (21-32); CHLORIDE 110 mmol/L (98-107); CREATININE 1.8 mg/dL (0.6-1.3); GLUCOSE 89 mg/dL (74-106); MAGNESIUM 2.3 mg/dL (1.8-2.4); PHOSPHORUS 3.8 mg/dL (2.5-4.9); POTASSIUM 4.6 mmol/L (3.5-5.1); SODIUM SERUM 143 mmol/L (136-145); UREA NITROGEN, BLOOD 42 mg/dL (7-18)
[2020-12-05 03:42] LABS: BILIRUBIN,DIRECT 0.4 mg/dL (0.0-0.2); BILIRUBIN,TOTAL 0.9 mg/dL (0.2-1.0); CHOLESTEROL 75 mg/dL (<200); HDL CHOLESTEROL 52 mg/dL (40-60); LDL 10 mg/dL (0-99); TRIGLYCERIDES 36 mg/dL (30-150)
--- NOTE | 2020-12-05 04:00 | NUR ---
RN NOTE RECEIVED CALL FOR CRITICAL LAB, LACTIC ACID 3.6. TRENDING UP. SHILOH JOHNSON INFORMED. NO NEW ORDERS.
[2020-12-05] MEDS ORDERED: PIPERACILLIN /TAZOBACTAM 3.375 G in IV D5W 50 ML IV SCH (06:00)
--- NOTE | 2020-12-05 07:07 | NUR ---
RN NOTE PATIENT RESTING BED. A/OX1-2, LETHARGIC. ON OXYGEN 5L/MIN VIA NASAL CANNULA. PATIENT TACHYPNEIC. SHILOH AWARE ORDERED CXR. NO S/S PAIN NOTED. TELE MONITOR CONTINUES TO READ SINUS TACH. IV ACCESS IN RAC#18 RUNNING D5NS@125ML/HR. EDOUARD CATH PRESENT, DRAINING TO GRAVITY, URINE ORANGE/HELIO. BED IS LOW AND LOCKED, HOB ELEVATED IN SEMI FOWLERS, SIDE RAILS UP X2, CALL LIGHT WITHIN REACH. WILL ENDORSE TO ONCOMING SHIFT.
--- NOTE | 2020-12-05 08:00 | NUR ---
ORDER DISPATCHER CHIEF NOTE SHIFT ASSESSMENT COMPLETED. PATIENT RESTING BED. A/OX1-2, LETHARGIC. PT WAS ABLE TO LIFT UPPER EXTREMITES. LOWER EXTREMITIES WEAK AND LESS THAN GRAVITY. PT ON OXYGEN 5L/MIN VIA NASAL CANNULA. PATIENT TACHYPNEIC. DAUGHTER IS AT BEDSIDE. SHILOH AWARE ORDERED CXR. NO S/S PAIN NOTED. TELE MONITOR CONTINUES TO READ SINUS TACH. IV ACCESS IN RAC#18 RUNNING D5NS@125ML/HR. EDOUARD CATH PRESENT, DRAINING TO GRAVITY, URINE ORANGE/HELIO. BED IS LOW AND LOCKED, HOB ELEVATED IN SEMI FOWLERS, SIDE RAILS UP X2, CALL LIGHT WITHIN REACH. DUE MEDICATION GIVEN PER ORDER. ORDER DISPATCHER CHIEF NOTE 12:00 REASSESSED THE PATIENT. PT MORE LETHARGIC. STILL AOx1-2. ST ON THE MONITOR RATE OF 133. PRIMARY MD AWARE. RR IS 37 TO 40 AND SHALLOW BREATHING. NO BM NOTED. EDOUARD INTACT AND DRAINING TO GRAVITY. RESCHEDULE SPEECH EVAL, PT, OT DUE TO PATIENT CONDITION IS NOT STABLE. DUE MEDICATION GIVEN PER ORDER. ORDER DISPATCHER CHIEF NOTE 15:00 NEUROLOGIST VISITED PATIENT AND ORDERED EEG AND MRI. INTERNATIONAL STUDENT ADVISOR REQUESTED RESCHEDULE MRI DUE TO PATIENT CONDITION IS NOT STABLE. EEG DONE AT BED SIDE. LAB COLLECTED LACTIC AND PROCALCITONIN AND SENT TO LAB. SECOND ABG DRAWN AND RESULT IS UP. SENT TEXT MESSAGE TO INTERNATIONAL STUDENT ADVISOR TO READ THE RESULT AND AWAITING FOR A RESPONSE. ORDER DISPATCHER CHIEF NOTE 16:00 REASSESSED THE PATIENT. PT LETHARGIC. ST ON THE MONITOR. RR IS 37 AND 40S. BREATHING IS SHALLOW AND LABORED. STILL WAITING A RESPONSE FROM INTERNATIONAL STUDENT ADVISOR ABOUT THE PLAN BASED ON ABG RESULT. ORDER DISPATCHER CHIEF NOTE 17:30 REASSESSED THE PATIENT. PT STILL LETHARGIC. SWITCHED TO SIMPLE MAS DUE TO PATIENT SATURATION DROPPED.
[2020-12-05] MEDS: ASPIRIN 325 MG TABLET PO SCH (08:32)
[2020-12-05] MEDS ORDERED: AMLODIPINE BESYLATE 2.5 MG TABLET PO SCH (09:00)
[2020-12-05] MEDS ORDERED: ATORVASTATIN 40 MG TABLET PO SCH (09:00)
[2020-12-05] MEDS ORDERED: ASPIRIN EC 81 MG TABLET.DR PO SCH (09:00)
[2020-12-05 10:01] LABS: FERRITIN 381 ng/mL (8-388)
[2020-12-05 10:11] LABS: ABG BASE EXCESS -6.3 mmol/L; ABG OXYGEN SATURATION 97.6 % (92.0-98.5); ABG PCO2 23.8 mmHg (35.0-45.0); ABG PH 7.444 (7.350-7.450); ABG PO2 90.8 mmHg (75.0-100.0); COHb 0.1 % (0.5-1.5); MetHb 0.1 % (0.0-1.5); O2Hb 97.4 % (94.0-97.0); SITE, ABG Right Radial; VENT MODE, BG NC 5 L
[2020-12-05 10:12] LABS: IRON, SERUM 8 ug/dl (50-175); TOTAL IRON BINDING CAPACITY 160 ug/dl (250-450)
[2020-12-05] MEDS: ENOXAPARIN SODIUM 30 MG/0.3 ML DISP.SYRIN SQ SCH (10:17)
[2020-12-05] MEDS: IV D5/ 0.9% NACL 1,000 ML IV PRN ×2 (12:03→19:40)
[2020-12-05] MEDS: DULOXETINE HCL 30 MG CAPSULE.DR PO SCH (14:00)
[2020-12-05] MEDS: CLOPIDOGREL BISULFATE 75 MG TABLET PO SCH (14:00)
[2020-12-05 14:18] LABS: ABG BASE EXCESS -6.5 mmol/L; ABG OXYGEN SATURATION 94.1 % (92.0-98.5); ABG PCO2 29.3 mmHg (35.0-45.0); ABG PH 7.387 (7.350-7.450); ABG PO2 72.6 mmHg (75.0-100.0); AaDO2 178.9 mmHg; COHb 0.3 % (0.5-1.5); MetHb 0.4 % (0.0-1.5); O2Hb 93.4 % (94.0-97.0); SITE, ABG Left Radial; VENT MODE, BG N/C
--- NOTE | 2020-12-05 14:30 | NUR ---
Advertising Associate note: SS consult requested for stroke. Patient is a 70-year-old, female. SW was notified by medical charge entry specialist Gil that the patient is currently not alert and oriented. SS will follow up at a later time.
--- NOTE | 2020-12-05 18:12 | NUR ---
FURNITURE STAINER NOTE PT INTUBATED AT BEDSIDE @ 18:12. BILATERAL LUNG SOUNDS CHECK. XRAY IS ORDERED.
[2020-12-05] MEDS ORDERED: PROPOFOL 100 ML IV PRN (18:30)
--- NOTE | 2020-12-05 18:30 | NUR ---
RT NOTE: LATE ENTRY-@1811-PATIENT WAS ORALLY INTUBATED BY WITH 7.5 ETT SECURED AT 22CM MID LIP LINE. BILATERAL CLEAR B/S NOTED. PATIENT PLACED ON MECHANICAL VENT AND SETTINGS= AC 22,UK=261, WS06=429%, PEEP= +5 PER MD ORDER. AMBU BAG AT [facility]. WILL ENDORSE TO INCOMING SHIFT.
--- NOTE | 2020-12-05 18:44 | NUR ---
LOGGING SUPERINTENDENT NOTE PROPOFOL STARTED WITH 5MCG. WILL INCREASE PER PROTOCOL.
[2020-12-05] MEDS: MEROPENEM 1 G in IV NS 0.9% 100 ML IV SCH (19:30)
[2020-12-05] MEDS: PROPOFOL 10MG/ML 50ML 50 ML IV PRN (19:39)
[2020-12-05 19:40] LABS: ABG BASE EXCESS -7.6 mmol/L; ABG OXYGEN SATURATION 99.4 % (92.0-98.5); ABG PCO2 36.5 mmHg (35.0-45.0); ABG PH 7.309 (7.350-7.450); ABG PO2 212.7 mmHg (75.0-100.0); AaDO2 463.8 mmHg; COHb 0.3 % (0.5-1.5); MetHb 0.3 % (0.0-1.5); O2Hb 98.8 % (94.0-97.0); PEEP,BG 5 cm H2O; SITE, ABG Right Radial; VENT MODE, BG AC 22 350 100% +5; VT, ABG 350 mL
--- NOTE | 2020-12-05 19:48 | NUR ---
HAND II TUBE BENDER PER ABG RESULTS PH 7.309 PCO2 36.5 PO2 212.7 HCO3 17.9 TIDAL VOLUME INCREASED TO 450.
--- NOTE | 2020-12-05 19:56 | NUR ---
RT NOTE ABG TAKEN AND RESULTS GIVEN TO RN. VENT CHANGES MADE PER MD ORDERS. WILL CONTINUE TO MONITOR CLOSELY Addendum: 12/05/20 at 6 by JOSEFINA FELTON RT Amended: Links added.
[2020-12-05] MEDS ORDERED: IV NS 0.9% 250 ML IV PRN (20:00)
[2020-12-05] MEDS ORDERED: ROCURONIUM BROMIDE 50 MG/5 ML IV ONE (20:14)
[2020-12-05] MEDS ORDERED: ETOMIDATE 2 MG/ML VIAL IV ONE (20:14)
--- NOTE | 2020-12-05 21:30 | NUR ---
CREDIT VERIFIER S/W PTS DAUGHTER JULIA TRIVEDI UPDATED ON PLAN OF CARE. DAUGHTER REQUESTING TO SPEAK TO MD; RELAYED REQUEST TO Andrea JOHNSON.
[2020-12-05] MEDS: LATANOPROST EYE DROP 0.005% 2.5 ML BOTTLE EACHEYE SCH (22:00)
[2020-12-05] MEDS ORDERED: MULTIVITAMIN LIQ 5 ML UDC GT SCH (22:00)
[2020-12-05] MEDS: BRIMONIDINE TARTRATE OPHT SOLN 5 ML BOTTLE EACHEYE SCH (22:00)
--- NOTE | 2020-12-05 22:21 | NUR ---
BALL MILL OPERATOR EYE DROPS AND MULTI VITAMINS NOT AVAILABLE AT THIS TIME.
--- NOTE | 2020-12-05 23:05 | NUR ---
TELEVISION STATION MANAGER BLOOD GLUCOSE 110 NO ACTION NEEDED
[2020-12-06] VITALS (69 sets, daily range): BP systolic 80–128; BP diastolic 34–78
--- NOTE | 2020-12-06 01:45 | NUR ---
FISH WARDEN FIO2 DECREASED TO 85% BY RT
[2020-12-06] MEDS: IV D5/ 0.9% NACL 1,000 ML IV PRN (03:50)
[2020-12-06] MEDS: PROPOFOL 10MG/ML 50ML 50 ML IV PRN ×3 (03:50→22:15)
--- NOTE | 2020-12-06 04:21 | NUR ---
RT NOTE PT REC'D ORALLY INTUBATED VIA ETT SZ #7.5 SECURED @ 22CM AT THE LIP LINE. PT ON [facility] VENT AC MODE SETTINGS CHARTED. ETT IS PATENT AND SECURED. PT SX'D FOR SMALL AMT OF CLEAR THIN SECRETIONS. ALARMS ARE SET AND AUDIBLE. AMBU BAG BEDSIDE. VENT PLUGGED INTO RED OUTLET. WILL CONTINUE TO MONITOR. Addendum: 12/06/20 at 0427 by JOSEFINA FELTON RT Amended: Links added.
[2020-12-06 04:38] LABS: BASOPHILS % (AUTO) 0.1 % (0.0-2.0); EOSINOPHILS % (AUTO) 0.1 % (0.0-6.0); HEMATOCRIT 32 % (33-45); HEMOGLOBIN 10.6 g/dL (11.5-14.8); LYMPHOCYTES # (AUTO) 0.2 K/uL (0.8-4.8); LYMPHOCYTES % (AUTO) 6.4 % (20.0-44.0); MEAN CORPUSCULAR HGB CONC 33 g/dl (31.0-36.0); MEAN CORPUSCULAR VOLUME 89 fL (82-100); MONOCYTES # (AUTO) 0.1 K/uL (0.1-1.30); MONOCYTES % (AUTO) 2.2 % (2.0-12.0); NEUTROPHILS # (AUTO) 2.5 K/uL (1.8-8.9); NEUTROPHILS % (AUTO) 91.2 % (43.0-81.0); PLATELET COUNT (AUTO) 300 K/uL (150-450); WHITE BLOOD COUNT (AUTO) 2.8 K/uL (4.3-11.0)
[2020-12-06 04:50] LABS: ALANINE AMINOTRANSFERASE 30 U/L (12-78); ALBUMIN 1.6 g/dL (3.4-5.0); ALKALINE PHOSPHATASE 115 U/L (46-116); ASPARTATE AMINOTRANSFERASE 43 U/L (15-37); BILIRUBIN,TOTAL 0.7 mg/dL (0.2-1.0); CALCIUM, SERUM 6.9 mg/dL (8.5-10.1); CARBON DIOXIDE 19 mmol/L (21-32); CHLORIDE 112 mmol/L (98-107); CREATININE 2.4 mg/dL (0.6-1.3); GLUCOSE 107 mg/dL (74-106); MAGNESIUM 2.4 mg/dL (1.8-2.4); PHOSPHORUS 3.5 mg/dL (2.5-4.9); POTASSIUM 4.8 mmol/L (3.5-5.1); SODIUM SERUM 145 mmol/L (136-145); TOTAL PROTEIN, SERUM 5.4 g/dL (6.4-8.2); UREA NITROGEN, BLOOD 53 mg/dL (7-18)
[2020-12-06] MEDS: BLOOD SUGAR DIAGNOSTIC 1 EACH STRIP IN SCH ×3 (05:23→17:57)
[2020-12-06 05:35] LABS: BAND % (MANUAL) 27 % (0.0-5.0); BASOPHILS % (MANUAL) 0 % (0.0-2.0); EOSINOPHILS % (MANUAL) 0 % (0-4); LYMPHOCYTES % (MANUAL) 14 % (16-48)
[2020-12-06 05:36] LABS: METAMYELOCYTES % 2 % (0-0); MONOCYTES % (MANUAL) 14 % (0-11.0); NEUTROPHILS % (MANUAL) 43 (42-76)
--- NOTE | 2020-12-06 06:39 | NUR ---
PRODUCTION LINE WORKER CORD CUTTER ALEX NOTIFIED OF LOW URINE OUTPUT W/ORDERS RECEIVED.
[2020-12-06] MEDS ORDERED: IV NS 0.9% 500 ML IV ONE (07:00)
--- NOTE | 2020-12-06 07:05 | NUR ---
RN NOTES RECEIVED PT ON BED, INTUBATED AND SEDATED , ON DIPRIVAN AT 15MCG/KG/MIN RUNNING, ON TELE ST HR IN 130'S , T=100.2 AXILLARY , COOLING MEASURES INITIATED, TYLENOL GIVEN , EDOUARD DRAINING TO GRAVITY, R AC IV SITE g 18 CDI, D5NS AT 125CC/HR RUNNING , PT RECEIVING 500CC NS BOLUS AT THIS TIME , CONTINUE TO MONITOR BP . SR UP x3, CALL LIGHT WITHIN EASY REACH, BED LOCKED AND IN LOWEST POSITION, CONTINUE TO MONITOR .
[2020-12-06] MEDS: ACETAMINOPHEN 325 MG TABLET PO PRN (07:19)
[2020-12-06] MEDS ORDERED: HYDROCORTISONE SOD SUCCINATE 100 MG/2 ML VIAL IV SCH (08:00)
[2020-12-06] MEDS: MEROPENEM 1 G in IV NS 0.9% 100 ML IV SCH ×2 (08:29→20:30)
[2020-12-06] MEDS: DULOXETINE HCL 30 MG CAPSULE.DR PO SCH (08:32)
[2020-12-06] MEDS: MULTIVITAMINS,THERAGRAN 1 UDTAB TABLET GT SCH (08:33)
[2020-12-06] MEDS: CLOPIDOGREL BISULFATE 75 MG TABLET PO SCH (08:33)
[2020-12-06] MEDS: ASPIRIN 325 MG TABLET PO SCH (08:33)
[2020-12-06 08:59] LABS: ABG PH 7.385 (7.350-7.450); ABG PO2 66.9 mmHg (75.0-100.0); AaDO2 191.9 mmHg; COHb 0.3 % (0.5-1.5); MetHb 0.2 % (0.0-1.5); O2Hb 93.5 % (94.0-97.0); SITE, ABG Right Radial
[2020-12-06] MEDS: IV LR 1000 ML 1,000 ML IV PRN ×2 (09:13→20:30)
--- NOTE | 2020-12-06 09:30 | NUR ---
Et-tube pulled back 2.5cm to 19 at the lip. Addendum: 12/06/20 at 1036 by ERROL BUTLER RT Amended: Links added.
[2020-12-06] MEDS: PHENYLEPHRINE 50 MG in IV NS 0.9% 245 ML IV PRN (10:03)
--- NOTE | 2020-12-06 10:03 | NUR ---
RN NOTES JOSELIN DRIP STARTED AT .5MCG/KG/MIN DUE TO LOW BP, DR WHITE NOTIFED .
[2020-12-06] MEDS: BRIMONIDINE TARTRATE OPHT SOLN 5 ML BOTTLE EACHEYE SCH ×2 (10:28→17:02)
--- NOTE | 2020-12-06 11:58 | NUR ---
SS Note: SW called and spoke to the pt.'s nurse, Esteban to determine pt.'s level of consciousness. Per Esteban, the pt. is intubated/ sedated still unable to be interviewed. MARE will continue to follow up for stroke consult.
[2020-12-06] MEDS ORDERED: FLUDROCORTISONE 0.1 MG TABLET NG SCH (12:00)
--- NOTE | 2020-12-06 12:00 | NUR ---
RN NOTES ADVERTISING AGENT AT THE BEDSIDE, BP STABLE AT THIS TIME. CONTINUE TO MONITOR .
[2020-12-06] MEDS ORDERED: VANCOMYCIN 1 GM in IV D5W 250 ML IV SCH (13:00)
--- NOTE | 2020-12-06 15:30 | NUR ---
RN NOTES TF STARTED AT 20CC/HR VIA NGT , CONTINUE TO MONITOR.
[2020-12-06] MEDS: JEVITY 1.2 CAL 1,000 ML BOTTLE GT PRN (15:57)
--- NOTE | 2020-12-06 17:09 | NUR ---
RN NOTES BG IS 57, REPEAT 61, DR CHRISTOPHER ROMAN, ONE AMP OF D50 IV GIVEN PER MD ORDER . CONTINUE TO MONITOR .
[2020-12-06] MEDS ORDERED: DEXTROSE 50%-WATER 50 ML DISP.SYRIN IVP ONE (17:30)
[2020-12-06 17:46] LABS: BASOPHILS % (AUTO) 0.1 % (0.0-2.0); EOSINOPHILS % (AUTO) 0.1 % (0.0-6.0); HEMATOCRIT 28 % (33-45); HEMOGLOBIN 9.2 g/dL (11.5-14.8); LYMPHOCYTES # (AUTO) 0.1 K/uL (0.8-4.8); LYMPHOCYTES % (AUTO) 2.5 % (20.0-44.0); MEAN CORPUSCULAR HGB CONC 33 g/dl (31.0-36.0); MEAN CORPUSCULAR VOLUME 89 fL (82-100); MONOCYTES % (AUTO) 0.3 % (2.0-12.0); NEUTROPHILS # (AUTO) 4.5 K/uL (1.8-8.9); PLATELET COUNT (AUTO) 230 K/uL (150-450); RED BLOOD CELL COUNT(AUTO) 3.13 MIL/uL (4.0-5.2); WHITE BLOOD COUNT (AUTO) 4.6 K/uL (4.3-11.0)
--- NOTE | 2020-12-06 18:00 | NUR ---
RN NOTES PT REMANINS INTUBATED AND SEDATED, ON DIPRIVAN AT 10MCG/KG/MIN, JOSELIN AT .5MCG/KG/MIN , LR AT 100CC/HR RUNNING VIA LEFT UPPER ARM PICC LINE , SITE CLEAN, DRY AND INTACT, PT HAD NO URINE OUTPUT ON THIS SHIFT, DR MEJIA NOTIFIED, WILL ENDORSE TO PRODUCT DEVELOPER NURSE FOR CONTINUITY OF CARE .
[2020-12-06 18:15] LABS: BAND % (MANUAL) 16 % (0.0-5.0); LYMPHOCYTES % (MANUAL) 12 % (16-48); MONOCYTES % (MANUAL) 9 % (0-11.0); NEUTROPHILS % (MANUAL) 63 (42-76)
[2020-12-06 18:54] LABS: CALCIUM, SERUM 6.4 mg/dL (8.5-10.1); CARBON DIOXIDE 15 mmol/L (21-32); CHLORIDE 110 mmol/L (98-107); CREATININE 3.1 mg/dL (0.6-1.3); GLUCOSE 300 mg/dL (74-106); POTASSIUM 4.9 mmol/L (3.5-5.1); SODIUM SERUM 142 mmol/L (136-145); UREA NITROGEN, BLOOD 55 mg/dL (7-18)
--- NOTE | 2020-12-06 19:27 | NUR ---
RN NOTES ALEX CHIROPRACTIC ASSISTANT NOTIFIED REGARDING BG =300 ON BMP RESULTS , BG REPEATED PER CHIROPRACTIC ASSISTANT ORDER AND IS 100 . CHIROPRACTIC ASSISTANT NOTIFIED.
--- NOTE | 2020-12-06 19:55 | NUR ---
RT NOTE PT REC'D ORALLY INTUBATED ON CHARTED SETTINGS. ETT IS PATENT AND SECURED. PT SX'D FOR SMALL AMT OF CLEAR THIN SECRETIONS. ALARMS ARE SET AND AUDIBLE. AMBU BAG BEDSIDE. VENT PLUGGED INTO RED OUTLET. WILL CONTINUE TO MONITOR. Addendum: 12/06/20 at 1954 by JOSR REEVES RT Amended: Links added.
--- NOTE | 2020-12-06 20:30 | NUR ---
STRAIGHT LINE PRESS SETTER TEMP 100.3 ADMINISTERED TYLENOL [place] AND RENDERED COOLING MEASURES
--- NOTE | 2020-12-06 21:00 | NUR ---
TRUCK DRIVER HEAVY UPDATED GIVEN TO PTS DAUGHTER
[2020-12-06] MEDS: ENOXAPARIN SODIUM 30 MG/0.3 ML DISP.SYRIN SQ SCH (21:21)
[2020-12-06] MEDS: LATANOPROST EYE DROP 0.005% 2.5 ML BOTTLE EACHEYE SCH (21:23)
--- NOTE | 2020-12-06 22:00 | NUR ---
GRADES 7 AND 8 VISITING TEACHER UNABLE TO COMPLETE NIH STROKE SCALE PT IS SEDATED AND INTUBATED; JASSI COMA SCALE AT 7
[2020-12-07] VITALS (71 sets, daily range): BP systolic 92–157; BP diastolic 37–106
[2020-12-07] MEDS: BLOOD SUGAR DIAGNOSTIC 1 EACH STRIP IN SCH ×4 (00:05→18:36)
[2020-12-07] MEDS: DEXTROSE 50%-WATER 50 ML DISP.SYRIN IVP PRN (00:05)
--- NOTE | 2020-12-07 00:15 | NUR ---
MULE PACKER ACCU CHECK VIA FINGER STICK, 26, 72, 53. PER LAB DRAW 87. ONE AMP D50 GIVEN AND D5NS@ 50ML/HR STARTED
[2020-12-07] MEDS ORDERED: IV D5/ 0.9% NACL 1,000 ML IV PRN (00:30)
[2020-12-07] MEDS: ACETAMINOPHEN 325 MG TABLET PO PRN ×2 (03:02→16:11)
[2020-12-07 04:54] LABS: CALCIUM, SERUM 6.6 mg/dL (8.5-10.1); CARBON DIOXIDE 16 mmol/L (21-32); CHLORIDE 112 mmol/L (98-107); CREATININE 3.4 mg/dL (0.6-1.3); GLUCOSE 116 mg/dL (74-106); POTASSIUM 4.8 mmol/L (3.5-5.1); SODIUM SERUM 144 mmol/L (136-145); UREA NITROGEN, BLOOD 64 mg/dL (7-18)
[2020-12-07 04:56] LABS: ABG BASE EXCESS -8.7 mmol/L; ABG OXYGEN SATURATION 95.2 % (92.0-98.5); ABG PCO2 27.9 mmHg (35.0-45.0); ABG PH 7.361 (7.350-7.450); ABG PO2 82.1 mmHg (75.0-100.0); COHb 0.3 % (0.5-1.5); MetHb 0.5 % (0.0-1.5); O2Hb 94.4 % (94.0-97.0); SITE, ABG Right Radial; VENT MODE, BG AC 22 450 40% +5
--- NOTE | 2020-12-07 05:00 | NUR ---
TRAINING CONSULTANT ABF RESULTS RELAYED TO BRANDIN MAIO. PH 7.361 PCO2 27.9 PO2 82.1 HCO3 15.4
[2020-12-07] MEDS: PHENYLEPHRINE 50 MG in IV NS 0.9% 245 ML IV PRN (05:55)
--- NOTE | 2020-12-07 06:00 | NUR ---
MACHINIST BENCH PT NOTED TO BE MORE EASILY AROUSABLE AND MOVING RUE. PROPOFOL INCREASED TO 15 MCG/KG/MIN.
--- NOTE | 2020-12-07 07:00 | NUR ---
RN NOTES RECEIVED PT ON BED, INTUBATED AND SEDATED , ON DIPRIVAN AT 15MCG/KG/MIN RUNNING, ON TELE ST HR IN 120'S , EDOUARD INTACT, NO URINE OUTPUT NOTED, DR MEJIA NOTIFED , R AC IV SITE G 18 CDI, D5NS AT 50CC/HR RUNNING ,LR AT 100CC/HR , JOSELIN AT .5 MCG/KG/MIN RUNNING FOR BP SUPPORT, SR UP x3, CALL LIGHT WITHIN EASY REACH, BED LOCKED AND IN LOWEST POSITION, CONTINUE TO MONITOR .
[2020-12-07 07:19] LABS: BILIRUBIN,DIRECT 0.4 mg/dL (0.0-0.2); BILIRUBIN,TOTAL 0.7 mg/dL (0.2-1.0); TOTAL PROTEIN, SERUM 5.2 g/dL (6.4-8.2)
[2020-12-07 07:31] LABS: ALBUMIN 1.3 g/dL (3.4-5.0)
[2020-12-07 07:43] LABS: BILIRUBIN,DIRECT 0.4 mg/dL (0.0-0.2)
[2020-12-07] MEDS: MEROPENEM 1 G in IV NS 0.9% 100 ML IV SCH ×2 (08:19→19:41)
[2020-12-07] MEDS: Sodium Bicarbonate 100 MEQ in IV D5W 1,000 ML IV PRN ×2 (08:19→20:41)
[2020-12-07] MEDS: ASPIRIN 325 MG TABLET PO SCH (08:56)
[2020-12-07] MEDS: DULOXETINE HCL 30 MG CAPSULE.DR PO SCH (08:56)
[2020-12-07] MEDS: MULTIVITAMINS,THERAGRAN 1 UDTAB TABLET GT SCH (08:56)
[2020-12-07] MEDS: CLOPIDOGREL BISULFATE 75 MG TABLET PO SCH (08:56)
[2020-12-07] MEDS: BRIMONIDINE TARTRATE OPHT SOLN 5 ML BOTTLE EACHEYE SCH ×2 (08:57→16:08)
--- NOTE | 2020-12-07 09:17 | NUR ---
SS note: SS follow up for stroke consult request. SW called the ICU and spoke to charge nurse, Amy. Per RN Amy, the patient is intubated/sedated still and is unable to be interviewed at this time. SS will continue to follow up and remain available for consult.
--- NOTE | 2020-12-07 12:00 | NUR ---
RN NOTES PT STILL OFF SEDATION AND PRESSORS , BP STABLE, PT IS SLIGHTLY MORE AWAKE ,EYES ARE CLOSED, FOLLOWS SIMPLE COMMAND, CONTINUE TO MONITOR.
--- NOTE | 2020-12-07 14:45 | NUR ---
RN NOTES DR ORTIZ AT THE BEDSIDE, SECOND EEG ORDERED PER MD ORDER .
[2020-12-07] MEDS: JEVITY 1.2 CAL 1,000 ML BOTTLE GT PRN (14:52)
[2020-12-07] MEDS ORDERED: VALPROIC ACID 250 MG/5 ML UDC GT ONE (18:00)
[2020-12-07] MEDS ORDERED: DEXTROSE 50%-WATER 50 ML DISP.SYRIN IVP ONE (18:00)
[2020-12-07 18:34] LABS: CALCIUM, SERUM 6.4 mg/dL (8.5-10.1); CARBON DIOXIDE 20 mmol/L (21-32); CHLORIDE 107 mmol/L (98-107); CREATININE 3.9 mg/dL (0.6-1.3); GLUCOSE 226 mg/dL (74-106); POTASSIUM 4.8 mmol/L (3.5-5.1); SODIUM SERUM 140 mmol/L (136-145); UREA NITROGEN, BLOOD 69 mg/dL (7-18)
--- NOTE | 2020-12-07 18:35 | NUR ---
RN NOTES BG=49 , REPEAT = 65, DR WHITE NOTIFED, ONE AMP OF D50 IV GIVEN, BG UP TO 120 AT THIS TIME, . CONTINUE TO MONITOR.
--- NOTE | 2020-12-07 18:55 | NUR ---
RN NOTES PT REMANINS INTUBATED OFF SEDATION, FOLLOWS SIMPLE COMMAND, TWITCHING OF UPPER AND LOWER EXTREMITAS NOTED, MD AWARE, BICARB DRIP AT 100CC/HR RUNNING VIA LEFT UPPER ARM PICC LINE , SITE CLEAN, DRY AND INTACT, PT HAD NO URINE OUTPUT ON THIS SHIFT, MD AWARE , TF AT 45CC/HR RUNNING, NO RESIDUAL NOTED WILL ENDORSE TO AUTOBODY TECHNICIAN NURSE FOR CONTINUITY OF CARE .
--- NOTE | 2020-12-07 20:10 | NUR ---
ICU/REGIONAL OPERATIONS MANAGER RANDOM SUGAR CHECK IS 90. WILL MONITOR THIS PT AND HER SUGARS.
--- NOTE | 2020-12-07 20:20 | NUR ---
ICU/BARREL WASHER MACHINE CRITICAL LAB VALUE OF ALB.1.3, NOTIFIED THE [employer] W[employer] OFFICER YESY FOR ORDERS. NO NEW ORDERS WERE RECIEVED.
--- NOTE | 2020-12-07 20:30 | NUR ---
ICU/AIR INTELLIGENCE OFFICER RT CALLED DUE TO SATURATION BEING IN THE 80'S-70'S, RT INCREASED THE FIO2 TO 50% FROM 40. SATURATION INCREASED TO 90'S. WILL CONTINUE TO MONITOR THIS PT AND HER SATURATION.
--- NOTE | 2020-12-07 20:39 | NUR ---
FiO2 increased to 50% due to low SaO2 on 40%; RN is aware. Addendum: 12/07/20 at 0 by PIPER SUÁREZ RT Amended: Links added.
[2020-12-07] MEDS ORDERED: VALPROIC ACID 250 MG/5 ML UDC GT SCH (21:00)
--- NOTE | 2020-12-07 21:00 | NUR ---
ICU/EXPORT SPECIALIST CALLED THE FELLER OPERATOR YESY DUE TO N/G TUBE RESIDUALS ARE 300ML. STOPPED THE FEEDING AND ALSO GOT ORDER FOR REGLAN IV AND ALSO CHANGED OVER DEPAKENE TO IV FROM PO. WILL CONTINUE TO MONITOR THIS PT.
[2020-12-07 21:29] LABS: BILIRUBIN,DIRECT 0.3 mg/dL (0.0-0.2); BILIRUBIN,TOTAL 0.6 mg/dL (0.2-1.0); TOTAL PROTEIN, SERUM 5.4 g/dL (6.4-8.2)
[2020-12-07 21:33] LABS: ALBUMIN 1.3 g/dL (3.4-5.0)
[2020-12-07] MEDS: LATANOPROST EYE DROP 0.005% 2.5 ML BOTTLE EACHEYE SCH (21:38)
[2020-12-07] MEDS: ENOXAPARIN SODIUM 30 MG/0.3 ML DISP.SYRIN SQ SCH (21:38)
--- NOTE | 2020-12-07 22:00 | NUR ---
ICU/TECHNICAL TRAINING SPECIALIST DAUGHTER CALLED GAVE UPDATE ON PT'S STATUS.
[2020-12-07] MEDS ORDERED: VALPROATE 500 MG/5 ML VIAL IV ONE (22:24)
[2020-12-07] MEDS ORDERED: VALPROATE 250 MG in IV D5W 100 ML IV SCH (22:30)
[2020-12-07] MEDS ORDERED: VALPROATE 250 MG in IV D5W 100 ML IV ONE (23:00)
[2020-12-07] MEDS: METOCLOPRAMIDE HCL 10 MG/2 ML VIAL IV SCH (23:38)
[2020-12-08] VITALS (84 sets, daily range): BP systolic 60–180; BP diastolic 17–102
--- NOTE | 2020-12-08 | NUR ---
ICU/CHARTING CLERK BOLUS 500ML IF LOW BLOOD PRESSURE X1 BEFORE STARTING JOSELIN, PER YESY.
[2020-12-08] MEDS: BLOOD SUGAR DIAGNOSTIC 1 EACH STRIP IN SCH ×7 (00:30→21:26)
--- NOTE | 2020-12-08 02:10 | NUR ---
ICU/VERSE WRITER BLOOD SUGAR IS 75 AT 0030. WILL RECHECK AT 0430.
[2020-12-08] MEDS: DEXTROSE 50%-WATER 50 ML DISP.SYRIN IVP PRN ×3 (02:23→21:27)
[2020-12-08] MEDS ORDERED: IV NS 0.9% 500 ML IV ONE (02:30)
--- NOTE | 2020-12-08 02:43 | NUR ---
ICU/SUPERVISOR WATERWORKS BATHING PT GOT BROWNISH GREEN BILE FROM MOUTH, PLACED TO SUCTION, ABOUT 1200ML OUT IMMEDIATELY. THEN PLACED TO INTERMEDIATE SUCTION. THEN CHECKED BLOOD SUGAR WAS 52, PUSHED D50 WILL RECHECK AGAIN PER PROTOCOL. ALSO BLOOD PRESSURE DROPPED DOWN TO THE 70'S, GAVE 500ML BOLUS. ALSO PT HAS TEMP 101.6, COOLING MEASURES PUT IN PLACE. SCALLOP BINDER WAS NOTIFED ABOUT THIS. NEW ORDERS WERE RECIEVED AND CARRIED OUT.
[2020-12-08] MEDS ORDERED: IV D5/ 0.9% NACL 1,000 ML IV PRN (03:00)
--- NOTE | 2020-12-08 03:30 | NUR ---
ICU/LABORER LIVESTOCK SATURATION FELL TO 70% THEN RT INCREASED FIO2 TO 100% SAT'S INCREASED TO 100%. WILL MAINTAIN THIS TO SUPPORT PT'S SATURATION AT THIS TIME FOR POSSIBLE ASPIRATION. BLOOD SUGAR RECHECK WAS 77 FROM 52. ALSO AT THIS TIME BLOOD PRESSURE INCREASED OVER 90'S, FROM BOLUS. ALSO RECHECKED TEMP IS 99.0 AX. FROM 101.6. N/G TUBE CONTINUE TO DRAIN OUT FROM THE INTERM. SUCTION.
--- NOTE | 2020-12-08 04:19 | NUR ---
FiO2 increased to 100% due to patient aspiration. FiO2 will be titrated down when patient is more stable. RN is aware. Addendum: 12/08/20 at 0420 by PIPER SUÁREZ RT Amended: Links added.
[2020-12-08] MEDS: METOCLOPRAMIDE HCL 10 MG/2 ML VIAL IV SCH ×3 (04:40→17:52)
[2020-12-08] MEDS: VALPROATE 250 MG in IV D5W 100 ML IV SCH ×3 (04:40→20:49)
[2020-12-08 04:58] LABS: BASOPHILS % (AUTO) 0.1 % (0.0-2.0); EOSINOPHILS % (AUTO) 0.1 % (0.0-6.0); HEMATOCRIT 28 % (33-45); HEMOGLOBIN 9.4 g/dL (11.5-14.8); LYMPHOCYTES # (AUTO) 0.2 K/uL (0.8-4.8); LYMPHOCYTES % (AUTO) 1.7 % (20.0-44.0); MEAN CORPUSCULAR HGB CONC 33 g/dl (31.0-36.0); MEAN CORPUSCULAR VOLUME 87 fL (82-100); MONOCYTES % (AUTO) 0.2 % (2.0-12.0); NEUTROPHILS # (AUTO) 9.3 K/uL (1.8-8.9); NEUTROPHILS % (AUTO) 97.9 % (43.0-81.0); PLATELET COUNT (AUTO) 180 K/uL (150-450); RED BLOOD CELL COUNT(AUTO) 3.23 MIL/uL (4.0-5.2); WHITE BLOOD COUNT (AUTO) 9.5 K/uL (4.3-11.0)
[2020-12-08 05:09] LABS: ALANINE AMINOTRANSFERASE 47 U/L (12-78); ALKALINE PHOSPHATASE 280 U/L (46-116); ASPARTATE AMINOTRANSFERASE 184 U/L (15-37); BILIRUBIN,DIRECT 0.3 mg/dL (0.0-0.2); BILIRUBIN,TOTAL 0.5 mg/dL (0.2-1.0); CALCIUM, SERUM 6.6 mg/dL (8.5-10.1); CARBON DIOXIDE 19 mmol/L (21-32); CHLORIDE 106 mmol/L (98-107); CREATININE 4.2 mg/dL (0.6-1.3); GLUCOSE 130 mg/dL (74-106); MAGNESIUM 2.3 mg/dL (1.8-2.4); PHOSPHORUS 3.1 mg/dL (2.5-4.9); POTASSIUM 4.6 mmol/L (3.5-5.1); SODIUM SERUM 142 mmol/L (136-145); TOTAL PROTEIN, SERUM 5.2 g/dL (6.4-8.2); UREA NITROGEN, BLOOD 71 mg/dL (7-18)
[2020-12-08 05:15] LABS: ALBUMIN 1.3 g/dL (3.4-5.0)
[2020-12-08 05:41] LABS: BAND % (MANUAL) 72 % (0.0-5.0); LYMPHOCYTES % (MANUAL) 2 % (16-48); MONOCYTES % (MANUAL) 3 % (0-11.0); NEUTROPHILS % (MANUAL) 12 (42-76)
[2020-12-08 05:42] LABS: BASOPHILS % (MANUAL) 0 % (0.0-2.0); EOSINOPHILS % (MANUAL) 0 % (0-4); METAMYELOCYTES % 8 % (0-0); MYELOCYTES % 3 % (0-0)
--- NOTE | 2020-12-08 06:14 | NUR ---
PATIENT RECEIVED WITH ETT 7.5 @ 19 cm ON VENT SUPPORT WITH SETTINGS OF AC 22, 450 Vt, 40%, +5. INITIALLY INCREASED FiO2 TO 50% DUE TO LOW SaO2. PER RN, PATIENT ASPIRATED AND FiO2 INCREASED TO 100% AND REMAINED SINCE. SUCTIONED FOR MINIMAL, THIN, WHITE SECRETIONS. AMBU BAG AT BEDSIDE. VENT ALARM AUDIBLE AND VISIBLE. CONTINUE TO MONITOR PATIENT. Addendum: 12/08/20 at 0617 by PIPER SUÁREZ RT Amended: Links added.
[2020-12-08] MEDS ORDERED: FUROSEMIDE 40 MG/4 ML VIAL IV ONE (07:30)
[2020-12-08] MEDS ORDERED: Calcium Gluconate 1GM/10ML 4.65 MEQ in IV D5W 50 ML IV ONE (07:30)
[2020-12-08] MEDS ORDERED: MEROPENEM 500 MG in IV NS 0.9% 100 ML IV SCH (08:00)
--- NOTE | 2020-12-08 08:00 | NUR ---
RN Note: Pt received for continuity of care. Continue on Vent-trac, Spo2 >88%. Aspiration precautions observed. NGT to intermittent suction, noted dark greenish/brownish output. HOB elevated. F/C intact with no UO. MD notified. Continue with IV fluids as ordered. Safety measures observed. Continue to monitor.
[2020-12-08 08:09] LABS: ABG OXYGEN SATURATION 97.8 % (92.0-98.5); ABG PCO2 26.2 mmHg (35.0-45.0); ABG PH 7.504 (7.350-7.450); ABG PO2 97.9 mmHg (75.0-100.0); AaDO2 588.9 mmHg; COHb 0.3 % (0.5-1.5); MetHb 0.3 % (0.0-1.5); O2Hb 97.2 % (94.0-97.0); PEEP,BG 5 cm H2O; SITE, ABG Right Radial; VENT MODE, BG AC 100%; VT, ABG 450 mL
[2020-12-08] MEDS: ASPIRIN 325 MG TABLET PO SCH (08:58)
[2020-12-08] MEDS: DULOXETINE HCL 30 MG CAPSULE.DR PO SCH (08:58)
[2020-12-08] MEDS: MULTIVITAMINS,THERAGRAN 1 UDTAB TABLET GT SCH (08:58)
[2020-12-08] MEDS: CLOPIDOGREL BISULFATE 75 MG TABLET PO SCH (08:58)
[2020-12-08] MEDS: BRIMONIDINE TARTRATE OPHT SOLN 5 ML BOTTLE EACHEYE SCH ×2 (08:59→17:53)
[2020-12-08] MEDS: IV 10% DEXTROSE 1,000 ML IV PRN (09:24)
[2020-12-08] MEDS: PHENYLEPHRINE 50 MG in IV NS 0.9% 245 ML IV PRN ×3 (09:52→21:30)
--- NOTE | 2020-12-08 10:00 | NUR ---
NEOSYNEPHRINE DRIP STARTED PER PROTOCOL FOR BP 87 /49. WILL TITRATE NEEDED.
--- NOTE | 2020-12-08 10:00 | NUR ---
RN Note: 09:04am- BS 54, repeated 24- Dr. Marrero notified at bedside. Dextrose IVP given as ordered for hypoglycemia. Received verbal orders to start Dextrose 10%W at 50 ml/hr, D/c D5NS @50ml/hr. New orders noted & carried out. 9:40am -BS 83, continue to monitor.
[2020-12-08] MEDS: Sodium Bicarbonate 100 MEQ in IV D5W 1,000 ML IV SCH ×2 (10:07→20:02)
[2020-12-08] MEDS: PANTOPRAZOLE 40 MG VIAL IV SCH (10:13)
--- NOTE | 2020-12-08 11:00 | NUR ---
PER DR. MOTT-ALREADY SPOKE TO DR. MEJIA REGARDING DIALYSIS, CONSENT FOR HD CATH / HEMODIALYSIS OBTAINED. ERIKA REINOSO AT BEDSIDE FOR HD CATH INSERTION.
--- NOTE | 2020-12-08 11:15 | NUR ---
DR. RESTREPO -WEAVER TIRE CORD MADE AWARE OF PATIENT DAUGHTER REQUEST TO SPEAK TO HIM. PER -WILL CALL. Addendum: 12/08/20 at 1134 by BRAD RAYMOND RN MD AWARE OF REPEAT ABG RESULTS. NNO.
[2020-12-08 11:16] LABS: ABG BASE EXCESS -3.6 mmol/L; ABG OXYGEN SATURATION 93.5 % (92.0-98.5); ABG PCO2 33.3 mmHg (35.0-45.0); ABG PH 7.406 (7.350-7.450); ABG PO2 65.9 mmHg (75.0-100.0); AaDO2 433.5 mmHg; COHb 0.3 % (0.5-1.5); MetHb 0.3 % (0.0-1.5); O2Hb 92.9 % (94.0-97.0); PEEP,BG 8 cm H2O; SITE, ABG Right Radial; VT, ABG 400 mL
[2020-12-08] MEDS ORDERED: ZOSYN IVPB 2.25 G in IV D5W 50ml IV SCH (12:00)
[2020-12-08] MEDS: IPRATROPIUM NEB FS 0.5 MG/2.5 ML AMPUL.NEB NEB SCH ×2 (13:06→21:00)
[2020-12-08] MEDS ORDERED: NA PHOS,M-B/NA PHOS,DI-BA 1 EA ENEMA RC ONE (14:00)
[2020-12-08] MEDS ORDERED: BISACODYL SUPP (10 MG) 10 MG/SUPP.RECT SUPP.RECT RC ONE (14:00)
[2020-12-08] MEDS ORDERED: MEROPENEM 500 MG in IV NS 0.9% 50 ML IV SCH (15:00)
[2020-12-08] MEDS: LEVALBUTEROL HCL NEB 1.25 MG/0.5 ML VIAL.NEB NEB SCH (15:30)
[2020-12-08] MEDS: VASOPRESSIN INJ 40 UNIT in IV NS 0.9% 38 ML IV PRN (15:55)
--- NOTE | 2020-12-08 15:55 | NUR ---
RN Note: Vasopressin gtt Started Vasopressin drip as ordered for low BP. For details please see flow sheet. Verified by Fernando Conteh RN at bedside. Addendum: 12/08/20 at 1558 by CINTHYA STOVER RN Ongoing hemodialysis.
--- NOTE | 2020-12-08 18:57 | NUR ---
RN Note: HD done, tolerated well with 500ml output. Evening care provided. Noted Small BM X 2. Suppository given X 1. Safety measures observed. Continue to monitor. Daughter at bedside.
--- NOTE | 2020-12-08 19:05 | NUR ---
RECEIVED PT ON BED LETHARGIC, RESPONSE ONLY TO DEEP PAIN, ON ETT/VENT SETTING PER MD FIO2 75% SPO2 96% NO SIGN OF ANY DISTRESS, BEDSIDE MONITOR READS SINUS TACHY 120'S HAVE JUAN PABLO PICC WITH ONGOING NaHCO3 + 1L D5W @ 100ML/HR, D10 @50ML/HR, JOSELIN@ 3MCG/KG/MIN AND VASOPRESSIN @0.01 MMCG/HR INFUSING WELL BP ON STABLE CONDITION, HAVE LNGT CONNECTED TO LIS WITH 0 OUTPUT, BED ON LOWEST POSITION AND LOCKED SIDE RAILS UP X2 WILL CONT TO MONITOR
[2020-12-08] MEDS: MEROPENEM 500 MG in IV NS 0.9% 50 ML IV SCH (20:03)
[2020-12-08] MEDS: HEPARIN SODIUM, PORCINE 5000 UNITS/1 ML VIAL SQ SCH (20:48)
--- NOTE | 2020-12-08 21:33 | NUR ---
Received patient intubated on CMV AC 18 400 75% +8. ETT @ 19cm. Patient suctioned for minimal amounts of white thin secretions. Alarms on and audible. Will continue to monitor. Addendum: 12/08/20 at 2133 by BRITANY HANEY RT Amended: Links added.
[2020-12-08] MEDS: LATANOPROST EYE DROP 0.005% 2.5 ML BOTTLE EACHEYE SCH (22:04)
[2020-12-08 22:29] LABS: ABG BASE EXCESS -2.3 mmol/L; ABG OXYGEN SATURATION 97.6 % (92.0-98.5); ABG PCO2 40.4 mmHg (35.0-45.0); ABG PH 7.369 (7.350-7.450); ABG PO2 105.8 mmHg (75.0-100.0); COHb 0.3 % (0.5-1.5); MetHb 0.3 % (0.0-1.5); SITE, ABG Right Radial
[2020-12-08] MEDS ORDERED: NOREPINEPHRINE 8MG/250ML RTU 250 ML IV ONE (23:36)
[2020-12-08] MEDS: NOREPINEPHRINE 8 MG in IV NS 0.9% 242 ML IV PRN (23:39)
[2020-12-09] VITALS (88 sets, daily range): BP systolic 75–137; BP diastolic 21–96
--- NOTE | 2020-12-09 00:10 | NUR ---
PT DAUGHTER CAME, TALK TO SHILOH JOHNSON NP AT BEDSIDE
[2020-12-09] MEDS: METOCLOPRAMIDE HCL 10 MG/2 ML VIAL IV SCH ×4 (01:00→17:47)
[2020-12-09] MEDS: BLOOD SUGAR DIAGNOSTIC 1 EACH STRIP IN SCH ×6 (01:00→23:54)
[2020-12-09] MEDS: IPRATROPIUM NEB FS 0.5 MG/2.5 ML AMPUL.NEB NEB SCH ×4 (02:02→19:58)
[2020-12-09] MEDS: LEVALBUTEROL HCL NEB 1.25 MG/0.5 ML VIAL.NEB NEB SCH ×4 (02:02→23:51)
[2020-12-09] MEDS ORDERED: PHENYLEPHRINE 10 MG/ML VIAL ONE (02:04)
[2020-12-09] MEDS: PHENYLEPHRINE 50 MG in IV NS 0.9% 245 ML IV PRN ×5 (02:11→20:57)
[2020-12-09] MEDS: IV 10% DEXTROSE 1,000 ML IV PRN (02:30)
[2020-12-09] MEDS: VALPROATE 250 MG in IV D5W 100 ML IV SCH ×3 (04:56→22:50)
[2020-12-09] MEDS ORDERED: SODIUM BICARBONATE SYR 50 MEQ/50 ML DISP.SYRIN ONE (05:00)
[2020-12-09 05:33] LABS: BASOPHILS % (AUTO) 0.1 % (0.0-2.0); EOSINOPHILS % (AUTO) 0.2 % (0.0-6.0); HEMATOCRIT 25 % (33-45); HEMOGLOBIN 8.2 g/dL (11.5-14.8); LYMPHOCYTES # (AUTO) 0.3 K/uL (0.8-4.8); LYMPHOCYTES % (AUTO) 1.5 % (20.0-44.0); MEAN CORPUSCULAR HGB CONC 32 g/dl (31.0-36.0); MEAN CORPUSCULAR VOLUME 89 fL (82-100); MONOCYTES # (AUTO) 0.1 K/uL (0.1-1.30); MONOCYTES % (AUTO) 0.9 % (2.0-12.0); NEUTROPHILS # (AUTO) 16.6 K/uL (1.8-8.9); NEUTROPHILS % (AUTO) 97.3 % (43.0-81.0); PLATELET COUNT (AUTO) 153 K/uL (150-450); RED BLOOD CELL COUNT(AUTO) 2.85 MIL/uL (4.0-5.2); WHITE BLOOD COUNT (AUTO) 17.1 K/uL (4.3-11.0)
[2020-12-09 05:54] LABS: ALANINE AMINOTRANSFERASE 37 U/L (12-78); ALKALINE PHOSPHATASE 556 U/L (46-116); ASPARTATE AMINOTRANSFERASE 281 U/L (15-37); BILIRUBIN,DIRECT 0.2 mg/dL (0.0-0.2); BILIRUBIN,TOTAL 0.4 mg/dL (0.2-1.0); CARBON DIOXIDE 29 mmol/L (21-32); CHLORIDE 93 mmol/L (98-107); CREATININE 3.2 mg/dL (0.6-1.3); MAGNESIUM 1.9 mg/dL (1.8-2.4); POTASSIUM 4.2 mmol/L (3.5-5.1); SODIUM SERUM 130 mmol/L (136-145); TOTAL PROTEIN, SERUM 4.5 g/dL (6.4-8.2); UREA NITROGEN, BLOOD 46 mg/dL (7-18)
[2020-12-09] MEDS: Sodium Bicarbonate 100 MEQ in IV D5W 1,000 ML IV SCH (06:00)
[2020-12-09 06:27] LABS: GLUCOSE 533 mg/dL (74-106)
[2020-12-09 06:28] LABS: ALBUMIN 0.9 g/dL (3.4-5.0); CALCIUM, SERUM 5.5 mg/dL (8.5-10.1)
--- NOTE | 2020-12-09 07:20 | NUR ---
PT ON BED STILL LETHARGIC, REACT TO DEEP PAIN, ON ETT/VENT SETTING PER MD FIO2 75% SPO2 92% NO SIGN OF ANY RESPIRATORY DISTRESS, TELE MONITOR READS SINUS TACHY 130'S STILL ON JOSELIN @ 3MCG/KG/MIN, VASOPRESSIN @ 0.04 UNITS/MIN LEVOPHED @ 0.2 MCG/KG/MIN LATEST BP 110/68 PT ALSO HAVE NaHCO3 100MEQ+1LD5W @100ML/HR AND D10 @ 75ML/HR INFUSING WELL NO URINE OUTPUT FOR WHOLE SHIFT, NGT ON LIS OUTPUT 100ML GREENISH LIQUID, BED ON LOWEST POSITION AND LOCKED SIDE RAILS UP X2 WILL CONT TO MONITOR
--- NOTE | 2020-12-09 07:20 | NUR ---
RETAIL WIRELESS SALES REPRESENTATIVE NOTES RECEIVED PT IN BED IN MODERATE HIGH BACK REST, REACT TO DEEP PAIN ONLY, ON ETT/VENT SETTING, FIO2 75% SPO2 90%, TELE MONITOR READS SINUS TACHY 128, NOTED JUAN PABLO PICC LINE, ON JOSELIN @ 3MCG/KG/MIN, VASOPRESSIN @ 0.04 UNITS/MIN LEVOPHED @ 0.2 MCG/KG/MIN, PT ALSO HAVE NaHCO3 100MEQ+1LD5W @100ML/HR AND D10 @ 75ML/HR INFUSING WELL. ON FC WITH NO URINE OUTPUT, NGT ON LEFT NARE CONNECTED TO LIS, SAFETY MEASURES MAINTAINED, BED ON LOWEST POSITION AND LOCKED SIDE RAILS UP X2. WILL CONTINUE TO MONITOR.
[2020-12-09] MEDS: HYDROCORTISONE SOD SUCCINATE 100 MG/2 ML VIAL IV SCH ×3 (07:32→22:49)
[2020-12-09 07:50] LABS: ABG BASE EXCESS -2.2 mmol/L; ABG OXYGEN SATURATION 95.2 % (92.0-98.5); ABG PCO2 41.9 mmHg (35.0-45.0); ABG PO2 76.7 mmHg (75.0-100.0); AaDO2 413.5 mmHg; COHb 0.3 % (0.5-1.5); MetHb 0.3 % (0.0-1.5); O2Hb 94.6 % (94.0-97.0); SITE, ABG Right Radial
[2020-12-09] MEDS: MEROPENEM 500 MG in IV NS 0.9% 50 ML IV SCH ×2 (08:28→22:49)
[2020-12-09] MEDS: CLOPIDOGREL BISULFATE 75 MG TABLET PO SCH (08:49)
[2020-12-09] MEDS: MULTIVITAMINS,THERAGRAN 1 UDTAB TABLET GT SCH (08:49)
[2020-12-09] MEDS: BRIMONIDINE TARTRATE OPHT SOLN 5 ML BOTTLE EACHEYE SCH ×2 (08:50→16:39)
[2020-12-09] MEDS: DULOXETINE HCL 30 MG CAPSULE.DR PO SCH (08:50)
[2020-12-09] MEDS: ASPIRIN 325 MG TABLET PO SCH (08:50)
[2020-12-09] MEDS: HEPARIN SODIUM, PORCINE 5000 UNITS/1 ML VIAL SQ SCH ×2 (08:51→21:00)
--- NOTE | 2020-12-09 09:00 | NUR ---
EXECUTIVE PASTRY CHEF NOTES BS OF 74, MD MADE AWARE WITH ORDER TO STOP Na Bicab in d5W. orders made and carried out. will continue to monitor.
[2020-12-09] MEDS: PANTOPRAZOLE 40 MG VIAL IV SCH (09:05)
--- NOTE | 2020-12-09 09:47 | NUR ---
agricultural extension officer notes daughter at bedside, wants to talk to hospitalist and nephro, Paged still awaiting for call back. will f/u
--- NOTE | 2020-12-09 09:53 | NUR ---
MEDIA STRATEGIST NOTES MADE AWARE TF STILL ON HOLD RSV OF 120ML WITH THICK GREENISH/BLACK, DR. WHITE ORDERED TPN, ORDER MADE AND CARRIED OUT. WILL CONTINUE TO MONITOR,
[2020-12-09] MEDS: NOREPINEPHRINE 8 MG in IV NS 0.9% 242 ML IV PRN (09:58)
[2020-12-09] MEDS ORDERED: TPN/PPN PER PHARMACY XX PRN (10:00)
[2020-12-09] MEDS: MICAFUNGIN SODIUM 100 MG in IV NS 0.9% 100 ML IV SCH (11:46)
[2020-12-09] MEDS ORDERED: INSULIN REGULAR, HUMAN 100 UNIT/ML 3 ML VIAL SQ PRN (12:00)
[2020-12-09] MEDS: TPN BAG #1 IV SCH (12:22)
--- NOTE | 2020-12-09 17:15 | NUR ---
agricultural crop farm manager notes endorse to margot hollins.
--- NOTE | 2020-12-09 17:20 | NUR ---
staff nurse icu resource team notes unable to get accurate o2 saturation, Dr. Fields made aware and order for ABG, orders made and carried out.
--- NOTE | 2020-12-09 17:30 | NUR ---
RN NOTES GET REPORT FROM YUSRA BLOCK PATIENT ETT/VENT DEPENDENT, PATIENT FULL CODE CHEMICAL, BS-129 MG/DL, ALSO GET STAT GLUCOSE LEVEL FROM LAB. IN BEDSIDE MONITOR SHOWS O2-77 TO 78%, GET STAT ABG , RT TAKING AT THIS TIME. PATIENT FINGERTIPS, LOWER EXTREMITIES BLUISH DISCOLORATION, VS SHOWS ON MONITOR BP104/70, P-117, T- 100F PROB RECTAL, RECHECKED MANUALLY AND 98.2 F AXILLARY. SKIN COOL WHEN TOUCHING. PATIENT HAS REL HD CATH INTACT, , LEFT UA PICC LINE INFUSING LEVOPHED 0.1 MCG/KG/HR, NEOSYNEPHRINE 3MCG/KG/HR, VERSED 0.04MG/ML, TPN 40ML/HR, AND TKO 5 ML/HR INTACT. EDOUARD HAS NO OUTPUT. DAUGHTER NEXT TO THE BED. WILL MONITORING.
--- NOTE | 2020-12-09 17:31 | NUR ---
RN NOTES CVP SHOWS 12 at this time.
[2020-12-09] MEDS: VASOPRESSIN INJ 40 UNIT in IV NS 0.9% 38 ML IV PRN (17:35)
[2020-12-09 18:05] LABS: ABG BASE EXCESS -4.2 mmol/L; ABG OXYGEN SATURATION 93.3 % (92.0-98.5); ABG PH 7.372 (7.350-7.450); ABG PO2 68.2 mmHg (75.0-100.0); AaDO2 428.3 mmHg; COHb 0.3 % (0.5-1.5); MetHb 0.3 % (0.0-1.5); O2Hb 92.7 % (94.0-97.0); SITE, ABG Right Radial
--- NOTE | 2020-12-09 18:10 | NUR ---
RN NOTES ABG RESULT AT THIS TIME PH-7.37, PC02-36, PO2-68, HCO2-20.4. ACCORDING ABG RESULT RT CHANGE FIO2-100%, CHARGE NURSE AWARE OF.
--- NOTE | 2020-12-09 18:30 | NUR ---
RN NOTES VS SHOWS ST-116, BP-107/73, DUE MEDICATION ADMINISTERED. PATIENT IS CRITICAL CONDITION. NGT WITH INTERMITTENT SUCTION, KEEP HOB ELEVATED, NO OUTPUT EDOUARD CATHETER, SKIN COOL TO TOUCH, AND BLUISH DISCOLORATION. CVP-13 AT THIS TIME. PICC LINE INFUSING JOSELIN 3, LEVOPHED 0.1, VERSED 0.04, TPN-40, AND TKO -5MG/ML WELL. ASSIST TURN AND REPOSITION. ENDORSED ONCOMING NURSE FOLLOW PLAN OF CARE.
--- NOTE | 2020-12-09 19:30 | NUR ---
NOVELTY TWISTER TENDER. RECEIVED THE PT RESTON THE BED.ORALLY INTUBATED. PT IS OBTUNDED.ETT 7.5, AC18, TV 400,FIO2 100%. PEEP 8. SAT 88%. N0 ACUTE DISTRESS NOTED. HOME HEALTH CARE SOCIAL WORKER SHOWING S TACH. IV LT UPPER ARM PICC LINE. RT IJ HD CATH. TPN 40 ML/H, JOSELIN 3MCG/KG/MIN, LEVO 0.1MCG/KG/MIN, VAS0 0.04UNIT/MIN. FC PATENT. LT NARE NGT INTACT. LOW INTERMITTENT SUCTION. FC PATENT. ANURIC. TEMPERATURE IS 100.4. PT IS VERY UNSTABLE. TIPOF THE FINGERS BLUISH COLOR. NO COUGH AND GAG REFLEX NOTED. WILL CONTINUE TO MONITOR.
--- NOTE | 2020-12-09 20:03 | NUR ---
RT NOTE PT REC'D ORALLY INTUBATED ON CHARTED SETTINGS. ETT IS PATENT AND SECURED. PT SX'D FOR SMALL AMT OF CLEAR THIN SECRETIONS. ALARMS ARE SET AND AUDIBLE. AMBU BAG BEDSIDE. VENT PLUGGED INTO RED OUTLET. WILL CONTINUE TO MONITOR. Addendum: 12/09/20 at 2002 by JOSR REEVES RT Amended: Links added.
[2020-12-09] MEDS: LATANOPROST EYE DROP 0.005% 2.5 ML BOTTLE EACHEYE SCH (22:50)
[2020-12-09] MEDS: DEXTROSE 50%-WATER 50 ML DISP.SYRIN IV PRN (23:35)
--- NOTE | 2020-12-09 23:36 | NUR ---
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 heparin not given. bleeding noted from hd cath site. notified aviation safety technician stephanie PRATT
--- NOTE | 2020-12-09 23:39 | NUR ---
BLOOD SUGAR IS LOW NOTIFIED PLANT MAINTENANCE WORKER TAMIKO PRATT. D50W IVP GIVEN.PROTOCOL INITIATED
--- NOTE | 2020-12-09 23:50 | NUR ---
NEGATIVE SPOTTER. S/P D50W BLOOD SUGAR IS 51. NOTIFIED SHILOH DNP. NO REPEAT D50W PER DNP. WILL START D10W.
[2020-12-10] VITALS (64 sets, daily range): BP systolic 63–163; BP diastolic 39–95
[2020-12-10] MEDS ORDERED: Sodium Chloride 154 MEQ in IV 10% DEXTROSE 1,000 ML IV PRN
[2020-12-10] MEDS: BLOOD SUGAR DIAGNOSTIC 1 EACH STRIP IN SCH ×15 (01:11→16:00)
[2020-12-10] MEDS: METOCLOPRAMIDE HCL 10 MG/2 ML VIAL IV SCH ×3 (01:11→12:19)
[2020-12-10] MEDS: DEXTROSE 50%-WATER 50 ML DISP.SYRIN IV PRN ×3 (01:11→08:07)
[2020-12-10] MEDS: PHENYLEPHRINE 50 MG in IV NS 0.9% 245 ML IV PRN ×3 (01:15→12:19)
[2020-12-10] MEDS ORDERED: TPN/PPN PER PHARMACY IV PRN (01:30)
[2020-12-10] MEDS: IPRATROPIUM NEB FS 0.5 MG/2.5 ML AMPUL.NEB NEB SCH ×3 (01:48→13:21)
[2020-12-10] MEDS: TPN BAG #1 IV SCH (02:03)
[2020-12-10] MEDS ORDERED: PHENYLEPHRINE 10 MG/ML VIAL ONE (02:08)
[2020-12-10 04:44] LABS: BASOPHILS % (AUTO) 0.2 % (0.0-2.0); EOSINOPHILS % (AUTO) 0.1 % (0.0-6.0); HEMATOCRIT 26 % (33-45); HEMOGLOBIN 8.3 g/dL (11.5-14.8); LYMPHOCYTES # (AUTO) 0.2 K/uL (0.8-4.8); LYMPHOCYTES % (AUTO) 0.9 % (20.0-44.0); MEAN CORPUSCULAR HGB CONC 32 g/dl (31.0-36.0); MEAN CORPUSCULAR VOLUME 88 fL (82-100); MONOCYTES # (AUTO) 0.1 K/uL (0.1-1.30); MONOCYTES % (AUTO) 0.5 % (2.0-12.0); NEUTROPHILS # (AUTO) 23.7 K/uL (1.8-8.9); NEUTROPHILS % (AUTO) 98.3 % (43.0-81.0); PLATELET COUNT (AUTO) 168 K/uL (150-450); RED BLOOD CELL COUNT(AUTO) 2.91 MIL/uL (4.0-5.2); WHITE BLOOD COUNT (AUTO) 24.1 K/uL (4.3-11.0)
[2020-12-10 04:56] LABS: CARBON DIOXIDE 24 mmol/L (21-32); CHLORIDE 94 mmol/L (98-107); CREATININE 3.8 mg/dL (0.6-1.3); GLUCOSE 207 mg/dL (74-106); MAGNESIUM 2.2 mg/dL (1.8-2.4); PHOSPHORUS 5.3 mg/dL (2.5-4.9); POTASSIUM 5.2 mmol/L (3.5-5.1); SODIUM SERUM 130 mmol/L (136-145); UREA NITROGEN, BLOOD 61 mg/dL (7-18)
[2020-12-10 04:57] LABS: TRIGLYCERIDES 181 mg/dL (30-150)
[2020-12-10] MEDS: HYDROCORTISONE SOD SUCCINATE 100 MG/2 ML VIAL IV SCH ×2 (05:16→12:19)
[2020-12-10 05:20] LABS: D-DIMER 35.2 mg/L(FEU (0.17-0.50)
[2020-12-10] MEDS: VALPROATE 250 MG in IV D5W 100 ML IV SCH ×2 (05:26→13:19)
[2020-12-10 05:38] LABS: CALCIUM, SERUM 5.9 mg/dL (8.5-10.1)
[2020-12-10] MEDS: NOREPINEPHRINE 8 MG in IV NS 0.9% 242 ML IV PRN (06:12)
--- NOTE | 2020-12-10 06:20 | NUR ---
RT PER MD ORDER PATIENT WAS COMPASSIONATELY EXTUBATED. DAUGHTER AT BEDSIDE. Addendum: 12/10/20 at 1842 by STEPHANIA PINK RT WRONG TIME INPUT
--- NOTE | 2020-12-10 06:33 | NUR ---
icurn.amcare given.remaining same vent settings on. sat 95%. hardware manager showing s tach. iv ltuppoerarm picc line. tpn 80ml/h, levophed 0.1mcg/kg/min, rad 2mcg/kg/min, vaso 0.02unit/min, . hob elevated. temperature 101. cooling measure placed. fc patent. anuric.ngt low intermittent suction. willcontinue to monitor vitals.
[2020-12-10] MEDS ORDERED: TPN ADDITIVES IV SCH (07:00)
[2020-12-10] MEDS ORDERED: D10 IV SCH (07:00)
[2020-12-10] MEDS ORDERED: TPN AMINO ACIDS IV SCH (07:00)
--- NOTE | 2020-12-10 07:15 | NUR ---
SETTER INDUCTION HEATING EQUIPMENT OPENING NOTE RECEIVED REPORT FROM PM NURSE.PATIENT IN BED.ORALLY INTUBATED. PT IS OBTUNDED.ETT 7.5,2LIP LEVEL 19 AC18, TV 400,FIO2 100%. PEEP 8. SAT 88%. N0 ACUTE DISTRESS NOTED. CAREER DEVELOPMENT ASSOCIATE SHOWING S TACH. IV LT UPPER ARM PICC LINE. RT IJ HD CATH. TPN 80 ML/H,ON JOSELIN , LEVO VAS0 . LT NARE NGT INTACT WITH GREENISH SECRETIONS. LOW INTERMITTENT SUCTION. FC PATENT VERY MINIMAL DARK YELLOW URINE NOTED. TEMPERATURE IS 100.6. PT IS VERY UNSTABLE. TIP OF THE FINGERS BLUISH COLOR. NO COUGH AND GAG REFLEX NOTED. WILL CONTINUE TO MONITOR.
[2020-12-10] MEDS ORDERED: TPN BAG #2 IV SCH ×2 (07:30→12:00)
--- NOTE | 2020-12-10 07:52 | NUR ---
RT PATIENT REC'D ORALLY INTUBATED ON [facility] VENT IN CRITICAL CONDITION. VENT SETTINGS AND ALARMS CHECKED + AUDIBLE. ETT SECURE AND IN PROPER POSITION. AIRWAY SUCTIONED AND PATENT WITH LITTLE TO NO SECRETIONS. PATIENT NOT SEDATED, NON RESPONSIVE. AMBU BAG AT [facility]. Addendum: 12/10/20 at 1138 by STEPHANIA PINK RT Amended: Links added.
[2020-12-10 07:58] LABS: ABG BASE EXCESS -4.6 mmol/L; ABG OXYGEN SATURATION 98.9 % (92.0-98.5); ABG PCO2 44.2 mmHg (35.0-45.0); ABG PH 7.305 (7.350-7.450); ABG PO2 155.6 mmHg (75.0-100.0); AaDO2 513.2 mmHg; COHb 0.3 % (0.5-1.5); MetHb 0.6 % (0.0-1.5); SITE, ABG Right Radial
--- NOTE | 2020-12-10 07:59 | NUR ---
RT PATIENT REC'D ORALLY INTUBATED ON [facility] VENT IN CRITICAL CONDITION. VENT SETTINGS AND ALARMS CHECKED + AUDIBLE. ETT SECURE AND IN PROPER POSITION. AIRWAY SUCTIONED AND PATENT WITH LITTLE TO NO SECRETIONS. PATIENT NOT SEDATED, NON RESPONSIVE. AMBU BAG AT [facility]. Addendum: 12/10/20 at 1138 by STEPHANIA PINK RT Amended: Links added.
[2020-12-10] MEDS: LEVALBUTEROL HCL NEB 1.25 MG/0.5 ML VIAL.NEB NEB SCH (08:05)
[2020-12-10] MEDS: CLOPIDOGREL BISULFATE 75 MG TABLET PO SCH (09:00)
[2020-12-10] MEDS: HEPARIN SODIUM, PORCINE 5000 UNITS/1 ML VIAL SQ SCH (09:00)
[2020-12-10] MEDS: ASPIRIN 325 MG TABLET PO SCH (09:00)
--- NOTE | 2020-12-10 09:00 | NUR ---
FLEXIBLE BABYSITTER NOTE SEEN BY ,UPDATED ABOUT PATIENT CONDITION WITH LABS AND D DIMER,COAG STUDIES.FAMILY AT BEDSIDE ANSWERED ALL QUESTIONS.SPOKE TO FAMILY.BS LOW PRN D50 GIVEN.WILL CONTINUE TO MONITOR WITH CONTINUATION OF TREATMENT ORDERS..
[2020-12-10] MEDS: MEROPENEM 500 MG in IV NS 0.9% 50 ML IV SCH (09:33)
[2020-12-10] MEDS: MULTIVITAMINS,THERAGRAN 1 UDTAB TABLET GT SCH (09:33)
[2020-12-10] MEDS: PANTOPRAZOLE 40 MG VIAL IV SCH (09:33)
[2020-12-10] MEDS: DULOXETINE HCL 30 MG CAPSULE.DR PO SCH (09:33)
--- NOTE | 2020-12-10 10:13 | NUR ---
GORE SEAMER NOTE SEEN BY ,SPOKE TO FAMILY ,ABLE TO MAKE DECISION ABOUT TREATMENT PLAN.DAUGHTER WILL LET US KNOW ABOUT FAMILY DECISION NAD VISITATION.PATIENT IS WITH 3 PRESSORS WITH FULL VENT SUPPORT.WILL CONTINUE TO MONITOR.
[2020-12-10] MEDS: BRIMONIDINE TARTRATE OPHT SOLN 5 ML BOTTLE EACHEYE SCH ×2 (11:32→16:29)
[2020-12-10] MEDS: MICAFUNGIN SODIUM 100 MG in IV NS 0.9% 100 ML IV SCH (12:19)
[2020-12-10] MEDS: ALBUMIN 25% 25 GM in PREMIX 1 EA IV SCH ×2 (13:00→15:15)
--- NOTE | 2020-12-10 13:44 | NUR ---
OIL FIELD EQUIPMENT MECHANIC SUPERVISOR NOTE PATIENT FAMILY DECIDED TO TAKE OFF PRESSORS. MADE AWARE.PATIENT STATUS IS COMFORT MEASURES ONLY. MADE AWARE.PLAN OF CARE TALKED TO THE FAMILY AGREED.PRIMARY DECISION MAKER DAUGHTER JULIA TRIVEDI AND FAMILY MEMBERS AT BEDSIDE.COMFORT ASSURED.D/C ALL PRESSORS PER ORDER .WILL MONITOR.
--- NOTE | 2020-12-10 15:19 | NUR ---
OFFICE MACHINE MECHANIC NOTE FAMILY REFUSED TO GIVE ALBUMIN TO THE PATIENT .SPOKE TO DAUGHTER AT BEDSIDE.
[2020-12-10] MEDS ORDERED: MORPHINE SULFATE INJ 2 MG/ML DISP.SYRIN IV ONE (16:30)
[2020-12-10] MEDS ORDERED: MORPHINE SULFATE PF DRIP 250 MG in IV D5W 240 ML IV PRN (16:30)
--- NOTE | 2020-12-10 16:34 | NUR ---
DIRECTOR EXECUTIVE COMMUNICATIONS NOTES patient family refuse blood sugar check and due Meds.will continue to monitor.patient on comfort measures only.As PER to give iv morphine first then start on morphine drip,to extubate after 1 hr. spoke to family.will monitor.
--- NOTE | 2020-12-10 17:15 | NUR ---
PORTFOLIO DIRECTOR NOTE MORPHINE DRIP STARTED FAMILY AT BEDSIDE PATIENT ON COMFORT MEASURES.ALL NEEDS MET.
--- NOTE | 2020-12-10 18:20 | NUR ---
RT PER MD ORDER PATIENT WAS COMPASSIONATELY EXTUBATED. DAUGHTER AT BEDSIDE.
--- NOTE | 2020-12-10 19:30 | NUR ---
COLD STRIP FEEDER NOTE PATIENT @1836.FAMILY AT BEDSIDE.CHARGE NURSE KIRILL PRONOUNCED ,ASYSTOLE IN MONITOR.NO AUDIBLE PULSE. RECORD DONE.PATIENT BELONGINGS TAKEN BY FAMILY BEFORE,DAUGHTER IS AWARE.SIGNED BELONGING LIST AND MORTUARY RELEASE FORM.CALL MADE TO MORTUARY,SPOKE TO KAMI GALVAN IN 90MIN.BUSINESS AND MARKETING TEACHER MADE AWARE,CALL MADE TO [facility],SPOKE TO HANSEL,CASE#[id number].OK TO RELEASE BODY TO HOME.PATIENT BODY READY FOR ACADEMIC SUPPORT CENTER DIRECTOR.TAG DONE.
--- NOTE | 2020-12-10 20:15 | NUR ---
RN/ICU- HOME PERSONNEL HERE, PT. DISCHARGED PER PROTOCOL. NO BELONGINGS NOTED.
[2020-12-10] MEDS ORDERED: TPN BAG #3 IV SCH (20:50)
[2020-12-11] MEDS ORDERED: TPN BAG #4 IV SCH (09:20)
== END 2020-12-10 18:36 | DRG 870 ==
LOC: ER 10:04 → ICU 11:40
PROVIDERS: ADMIT Internal Medicine; ATTEND Internal Medicine
PROC: 5A1955Z Respiratory Ventilation, Greater than 96 Consecutive Hours (ICD-10-PCS; principal; 2020-12-05)
PROC: 0BH18EZ Insertion of Endotracheal Airway into Trachea, Via Natural or Artificial Opening Endoscopic (ICD-10-PCS; 2020-12-05)
PROC: 02HV33Z Insertion of Infusion Device into Superior Vena Cava, Percutaneous Approach (ICD-10-PCS; 2020-12-05)
PROC: B548ZZA Ultrasonography of Superior Vena Cava, Guidance (ICD-10-PCS; 2020-12-05)
PROC: 05HY33Z Insertion of Infusion Device into Upper Vein, Percutaneous Approach (ICD-10-PCS; 2020-12-08)
PROC: 5A1D70Z Performance of Urinary Filtration, Intermittent, Less than 6 Hours Per Day (ICD-10-PCS; 2020-12-08)
DX: A41.51 Sepsis due to Escherichia coli [E. coli] (principal); G93.41 Metabolic encephalopathy; N17.0 Acute kidney failure with tubular necrosis; R65.21 Severe sepsis with septic shock; I63.9 Cerebral infarction, unspecified; J69.0 Pneumonitis due to inhalation of food and vomit; J96.01 Acute respiratory failure with hypoxia; E87.2 Acidosis; N39.0 Urinary tract infection, site not specified; J98.11 Atelectasis; I13.0 Hypertensive heart and chronic kidney disease with heart failure and stage 1 through stage 4 chronic kidney disease, or unspecified chronic kidney disease; E87.0 Hyperosmolality and hypernatremia; B49 Unspecified mycosis; K56.7 Ileus, unspecified; K56.609 Unspecified intestinal obstruction, unspecified as to partial versus complete obstruction; F03.90 Unspecified dementia, unspecified severity, without behavioral disturbance, psychotic disturbance, mood disturbance, and anxiety; G62.9 Polyneuropathy, unspecified; Z20.822 Contact with and (suspected) exposure to COVID-19; F32.9 Major depressive disorder, single episode, unspecified; E78.5 Hyperlipidemia, unspecified; Z86.73 Personal history of transient ischemic attack (TIA), and cerebral infarction without residual deficits; Z79.82 Long term (current) use of aspirin; Z79.899 Other long term (current) drug therapy; E16.2 Hypoglycemia, unspecified; E83.51 Hypocalcemia; I50.9 Heart failure, unspecified; N18.9 Chronic kidney disease, unspecified; Z51.5 Encounter for palliative care; Z66 Do not resuscitate; B96.20 Unspecified Escherichia coli [E. coli] as the cause of diseases classified elsewhere; K31.9 Disease of stomach and duodenum, unspecified; Z96.642 Presence of left artificial hip joint; E88.09 Other disorders of plasma-protein metabolism, not elsewhere classified; H02.401 Unspecified ptosis of right eyelid; R31.29 Other microscopic hematuria
CPT/HCPCS: 31720; 36415; 36569; 36600; 70450-TC; 70496-TC; 70498-TC; 71045-TC; 74018; 76700-TC; 76770-TC; 80048-TC; 80053-TC; 80061-TC; 80076-TC; 80202-TC; 81001; 82150-TC; 82247-TC; 82248-TC; 82330; 82533; 82728-TC; 82803-TC; 82947-TC; 82962-TC; 83540-TC; 83605-TC; 83690-TC; 83735-TC; 83880; 84100-TC; 84439-TC; 84443-TC; 84478-TC; 84484-TC; 85025-TC; 85378-TC; 85385-TC; 85610-TC; 85730-TC; 86850-TC; 87040-TC; 87070-TC; 87081-TC; 87086-TC; 87186-TC; 90935-TC; 93307-TC; 93970-TC; 94003-TC; 94760-TC; 94762-TC; 94799-TC; 95819-TC; A4216; A6403; C1750; C1751; C9113; G0378; J0610; J1644; J1650; J1720; J1815; J1940; J2185; J2248; J2270; J2274; J2370; J2543; J2765; J3370; J3490; J7030; J7040; J7042; J7050; J7060; J7070; J7120; P9047; Q9967